=== PATIENT | male | born 1970 | race Caucasian/White ===

== ENCOUNTER 2017-06-19 20:52 | Inpatient (IN) | payer MEDICARE, MEDICAID ==
[2017-06-19 22:10] LABS: % EOSINOPHILS 5.2 % (0.0-5.0); % MONOCYTES 7.5 % (2.0-10.0); % NEUTROPHILS 72.3 % (40.0-80.0); EOSINOPHILE ABSOLUTE 0.4 Th/cmm (0.1-0.4); HEMATOCRIT 44.4 % (41.0-60); HEMOGLOBIN 14.7 gm/dL (12-16); LYMPHOCYTE ABSOLUTE 1.3 Th/cmm (1.5-3.0); MEAN CELL VOLUME 92.5 fl (80-99); MEAN CORPUSCULAR HEMOGLOBIN 30.7 pg (26.0-30.0); MEAN CORPUSCULAR HGB CONC 33.2 pg (28.0-36.0); MEAN PLATELET VOLUME 7.5 fl; MONOCYTE ABSOLUTE 0.6 Th/cmm (0.3-1.0); NEUTROPHILE ABSOLUTE 6.2 Th/cmm (1.8-8.0); PLATELET COUNT 387 Th/cmm (150-400); RED CELL DISTRIBUTION WIDTH 12.7 % (11.5-20.0); WHITE BLOOD COUNT 8.5 Th/cmm (4.8-10.8)
[2017-06-19 22:17] LABS: URINE MICROSCOPIC INDICATED? YES; URINE SOURCE CLEAN C
[2017-06-19 22:19] LABS: URINE BILIRUBIN NEGATIVE (NEGATIVE); URINE BLOOD NEGATIVE (NEGATIVE); URINE GLUCOSE (UA) NEGATIVE (NEGATIVE); URINE KETONE NEGATIVE (NEGATIVE); URINE LEUKOCYTE ESTERASE NEGATIVE (NEGATIVE); URINE NITRATE NEGATIVE (NEGATIVE); URINE PROTEIN 30 mg/dL (NEGATIVE)
[2017-06-19 22:24] LABS: ALB/GLOB RATIO 1.3 (1.0-1.8); ALBUMIN 4.1 gm/dL (4.2-5.5); ALKALINE PHOSPHATASE 95 U/L (34-104); ANION GAP 9.8 (7.0-16.0); BILIRUBIN,TOTAL 0.4 mg/dL (0.3-1.0); BUN - UREA NITROGEN 12 mg/dL (7-25); CALCIUM SERUM 9.7 mg/dL (8.6-10.3); CARBON DIOXIDE 27.8 mEq/L (21.0-31.0); CHLORIDE 99 mEq/L (98-107); CREATININE - SERUM 0.7 mg/dL (0.7-1.3); GFR AFRICAN-AMERICAN > 60.0 ml/min (>90); GFR NON AFRICAN-AMERICAN > 60.0 ml/min; GLUCOSE 115 mg/dL (70-105); PHENYTOIN 5.5 ug/ml (10.0-20.0); POTASSIUM SERUM 3.6 mEq/L (3.5-5.1); SGOT 45 U/L (13-39); SGPT/ALT 67 U/L (7-52); SODIUM SERUM 133 mEq/L (136-145); TOTAL PROTEIN,SERUM 7.3 gm/dL (6.0-8.3)
[2017-06-19 22:41] LABS: URINE CLARITY HAZY (CLEAR); URINE COLOR YELLOW
[2017-06-19 22:43] LABS: URINE BACTERIA FEW /hpf (NONE SEEN); URINE EPITHELIAL CELLS OCCASIONAL /lpf (FEW); URINE RBC 0-2 /hpf (0-5)
--- NOTE | 2017-06-19 23:36 | ED Physician Chart ---
ED Chief Complaint/HPI - Patient Information Date Seen:: 06/19/17 Time Seen:: 23:34 Chief Complaint:: Increased agitation and seizure Allergies:: Allergies Allergy/AdvReac Type Severity Reaction Status Date / Time No Known Allergies Allergy Verified 06/19/17 21:14 Vitals:: Vital Signs - 8 hr 06/19/17 21:14 Temp 97.6 F HR 103 RR 18 BP 149/90 O2 Sat % 98 Family Medical History - Family Member Mother History Unknown: Yes ED Labs/Radiology/EKG Results - Lab Results Results: Laboratory Tests 06/19/17 06/19/17 06/19/17 21:50 22:02 22:02 WBC 8.5 RBC 4.80 Hgb 14.7 Hct 44.4 MCV 92.5 MCH 30.7 H MCHC Differential 33.2 RDW 12.7 Plt Count 387 MPV 7.5 Neutrophils % 72.3 Lymphocytes % 15.0 L Monocytes % 7.5 Eosinophils % 5.2 H Basophils % 0.0 Sodium 133 L Potassium 3.6 Chloride 99 Carbon Dioxide 27.8 Anion Gap 9.8 BUN 12 Creatinine 0.7 Est GFR ( Amer) > 60.0 Est GFR (Non-Af Amer) > 60.0 BUN/Creatinine Ratio 17.1 Glucose 115 H Calcium 9.7 Total Bilirubin 0.4 AST 45 H ALT 67 H Alkaline Phosphatase 95 Total Protein 7.3 Albumin 4.1 L Globulin 3.2 Albumin/Globulin Ratio 1.3 TSH Urine Source CLEAN C Urine Color YELLOW Urine Clarity HAZY Urine pH 6.0 Ur Specific [place] 1.025 Urine Protein 30 H Urine Glucose (UA) NEGATIVE Urine Ketones NEGATIVE Urine Blood NEGATIVE Urine Nitrate NEGATIVE Urine Bilirubin NEGATIVE Urine Urobilinogen 1.0 Ur Leukocyte Esterase NEGATIVE Urine RBC 0-2 H Urine WBC 2-5 Ur Epithelial Cells OCCASIONAL Urine Bacteria FEW Urine Mucus MODERATE Phenytoin Carbamazepine 06/19/17 06/19/17 22:02 22:02 WBC RBC Hgb Hct MCV MCH MCHC Differential RDW Plt Count MPV Neutrophils % Lymphocytes % Monocytes % Eosinophils % Basophils % Sodium Potassium Chloride Carbon Dioxide Anion Gap BUN Creatinine Est GFR ( Amer) Est GFR (Non-Af Amer) BUN/Creatinine Ratio Glucose Calcium Total Bilirubin AST ALT Alkaline Phosphatase Total Protein Albumin Globulin Albumin/Globulin Ratio TSH 2.18 Urine Source Urine Color Urine Clarity Urine pH Ur Specific [place] Urine Protein Urine Glucose (UA) Urine Ketones Urine Blood Urine Nitrate Urine Bilirubin Urine Urobilinogen Ur Leukocyte Esterase Urine RBC Urine WBC Ur Epithelial Cells Urine Bacteria Urine Mucus Phenytoin 5.5 L Carbamazepine 4.2 ED Septic Shock - <6hrs of presentation: Vital Signs: Vital Signs - 8 hr 06/19/17 21:14 Temp 97.6 F HR 103 RR 18 BP 149/90 O2 Sat % 98
[2017-06-19] MEDS ORDERED: Sodium Chloride 0.9% 1,000 ML IV ONE (23:39)
[2017-06-19] MEDS ORDERED: Phenytoin 1,000 MG in Sodium Chloride 0.9% 100 ML IV ONE (23:40)
[2017-06-20] MEDS ORDERED: Phenytoin 50 mg/mL 5 mL Vial IV ONE (02:12)
[2017-06-20 05:24] VITALS: BP 107/72
[2017-06-20] MEDS: Sodium Chloride 0.9% 1,000 ML IV SCH ×2 (05:55→18:21)
[2017-06-20] MEDS ORDERED: Pneumococcal Vaccine 0.5 mL Vial IM ONE (06:25)
[2017-06-20 07:04] LABS: ANION GAP 10.3 (7.0-16.0); BUN - UREA NITROGEN 8 mg/dL (7-25); CALCIUM SERUM 9.4 mg/dL (8.6-10.3); CARBON DIOXIDE 24.7 mEq/L (21.0-31.0); CHLORIDE 104 mEq/L (98-107); CREATININE - SERUM 0.6 mg/dL (0.7-1.3); GFR AFRICAN-AMERICAN > 60.0 ml/min (>90); GFR NON AFRICAN-AMERICAN > 60.0 ml/min; GLUCOSE 106 mg/dL (70-105); SODIUM SERUM 135 mEq/L (136-145)
[2017-06-20 07:46] LABS: BASOPHILE ABSOLUTE 0.5 Th/cumm (0-0.2); EOSINOPHILE ABSOLUTE 0.8 Th/cmm (0.1-0.4); HEMATOCRIT 43.1 % (41.0-60); HEMOGLOBIN 14.3 gm/dL (12-16); LYMPHOCYTE ABSOLUTE 2.3 Th/cmm (1.5-3.0); MEAN CELL VOLUME 91.8 fl (80-99); MEAN CORPUSCULAR HEMOGLOBIN 30.5 pg (26.0-30.0); MEAN CORPUSCULAR HGB CONC 33.2 pg (28.0-36.0); MEAN PLATELET VOLUME 7.8 fl; NEUTROPHILE ABSOLUTE 3.2 Th/cmm (1.8-8.0); PLATELET COUNT 339 Th/cmm (150-400); RED BLOOD COUNT 4.69 Mil/cmm (4.30-5.70); RED CELL DISTRIBUTION WIDTH 12.7 % (11.5-20.0); WHITE BLOOD COUNT 7.8 Th/cmm (4.8-10.8)
[2017-06-20 07:47] LABS: % BASOPHILS 6.1 % (0.0-2.0); % EOSINOPHILS 10.3 % (0.0-5.0); % LYMPHOCYTES 29.3 % (20.0-50.0); % MONOCYTES 13.2 % (2.0-10.0); % NEUTROPHILS 40.8 % (40.0-80.0)
[2017-06-20] MEDS ORDERED: Lacosamide 10 mg/mL 10mL UDC PO SCH (09:00)
--- NOTE | 2017-06-20 09:00 | Diagnostic Imaging Report ---
CHEST X-RAY: AP view INDICATION: Shortness of breath COMPARISON: None FINDINGS: A stimulator device is seen with reservoir along the left upper chest region and wires extending to the cervical spine region There is no focal consolidation or pleural effusions The heart is normal in size. Degenerative changes of the spine are noted. IMPRESSION: No focal consolidation identified Stimulator device noted. Please correlate clinically.
--- NOTE | 2017-06-20 09:25 | Diagnostic Imaging Report ---
Head CT without intravenous contrast Indication: Seizure Comparison: None Technique: Axial images were obtained from the vertex to the skull base without IV contrast. Coronal reconstructions were made. Total DLP: 756, [id number] FINDINGS: There is evidence of previous left frontal, temporal, and parietal craniotomies with associated postsurgical changes. Areas of encephalomalacia of the left parietal lobe are noted extending to the posterior left temporal lobe. There is mild ex vacuo dilatation of left lateral ventricle. No evidence of an acute hemorrhage. The basal cisterns are patent. No mass effect or midline shift. No focal soft tissue swelling. Air-fluid levels of the bilateral maxillary sinuses are noted. IMPRESSION: Postsurgical changes with areas of encephalomalacia involving the left parietal and temporal lobe region. Please correlate with patient's clinical and surgical history. No evidence of an acute hemorrhage. Bilateral maxillary sinusitis.
[2017-06-20] MEDS ORDERED: Haloperidol Lactate 5 mg/mL 1mL Vial IM PRN (11:12)
[2017-06-20] MEDS ORDERED: DIAZEPAM 10 MG RC PRN (11:12)
[2017-06-20] MEDS ORDERED: LORAZEPAM 2 MG PO SCH (14:00)
--- NOTE | 2017-06-20 16:12 | History & Physical ---
ADMIT DATE: 06/20/2017 CHIEF COMPLAINT: Agitation. HISTORY OF PRESENT ILLNESS: This is a 46-year-old male, who was admitted from a custodial facility to the Emergency Room due to increase in agitation and en route to the Emergency Room, the patient had witnessed seizure. REVIEW OF SYSTEMS: GENERAL: This is a 46-year-old male that appears as stated. No chills. No fever. HEAD: No headache. No dizziness. EYES: No eye pain, no blurring of vision. NECK: No neck pain, no nuchal rigidity. CHEST: No chest pain. No palpitation. PULMONARY: No shortness of breath, no coughing. GASTROINTESTINAL: No diarrhea, no constipation, no abdominal pain. MUSCULOSKELETAL: No joint pain. No muscle pain. SOCIAL HISTORY: The patient lives in a custodial facility prior to hospitalization. FAMILY HISTORY: Unremarkable. PAST SURGICAL HISTORY: Unremarkable. PAST MEDICAL HISTORY: Includes seizure disorder, osteoarthritis. PSYCHIATRIC HISTORY: Mental retardation. PHYSICAL EXAMINATION: VITAL SIGNS: Temperature 97.8, heart rate 92, blood pressure 107/72, respirations 16, 96% on 2 liters via nasal cannula. HEENT: Head is atraumatic, normocephalic. Eyes: Bilateral conjunctivae are clear. Nose: Bilateral pupils are equally round and reactive. NECK: Supple. No JVD. CARDIOVASCULAR: S1 and S2, without murmur. PULMONARY: Clear to auscultation. GASTROINTESTINAL: Soft and nontender without guarding. Positive bowel sounds. MUSCULOSKELETAL: No clubbing. No cyanosis noted. ASSESSMENT: 1. Psychosis. 2. Mental retardation. 3. Seizure disorder. 4. Osteoarthritis. PLAN: We will keep the patient admitted to telemetry unit. We will put the patient on seizure precaution. We are also going to consult psychiatrist and neurologist to monitor the patient's condition. Treatment plans were discussed with the patient's nurse. Treatment plans were discussed with Dr. Patel. We will do medication reconciliation accordingly. JOB# [id number]
[2017-06-20] MEDS ORDERED: Non-Formulary Item 1 EA (Carbamazepine [Tegretol Xr] 400 MG) PO SCH (17:00)
[2017-06-20] MEDS ORDERED: LACOSAMIDE 150 MG PO SCH (17:00)
[2017-06-20] MEDS ORDERED: Haloperidol Lactate 5 mg/mL 1mL Vial IM SCH (22:00)
--- NOTE | 2017-06-21 08:57 | General Progress Note ---
Subjective - Review of Systems Events since last encounter: patient admitted for increase agitation s/p seizures Objective - Results Result Diagrams: 06/20/17 05:47 06/20/17 05:47 Recent Labs: Laboratory Last Values WBC 7.8 Th/cmm (4.8-10.8) 06/20/17 05:47 RBC 4.69 Mil/cmm (4.30-5.70) 06/20/17 05:47 Hgb 14.3 gm/dL (12-16) 06/20/17 05:47 Hct 43.1 % (41.0-60) 06/20/17 05:47 MCV 91.8 fl (80-99) 06/20/17 05:47 MCH 30.5 pg (26.0-30.0) H 06/20/17 05:47 MCHC Differential 33.2 pg (28.0-36.0) 06/20/17 05:47 RDW 12.7 % (11.5-20.0) 06/20/17 05:47 Plt Count 339 Th/cmm (150-400) 06/20/17 05:47 MPV 7.8 fl 06/20/17 05:47 Neutrophils % 40.8 % (40.0-80.0) 06/20/17 05:47 Lymphocytes % 29.3 % (20.0-50.0) 06/20/17 05:47 Monocytes % 13.2 % (2.0-10.0) H 06/20/17 05:47 Eosinophils % 10.3 % (0.0-5.0) H 06/20/17 05:47 Basophils % 6.1 % (0.0-2.0) H 06/20/17 05:47 Sodium 135 mEq/L (136-145) L 06/20/17 05:47 Potassium 4.0 mEq/L (3.5-5.1) 06/20/17 05:47 Chloride 104 mEq/L (98-107) 06/20/17 05:47 Carbon Dioxide 24.7 mEq/L (21.0-31.0) 06/20/17 05:47 Anion Gap 10.3 (7.0-16.0) 06/20/17 05:47 BUN 8 mg/dL (7-25) 06/20/17 05:47 Creatinine 0.6 mg/dL (0.7-1.3) L 06/20/17 05:47 Est GFR ( Amer) > 60.0 ml/min (>90) 06/20/17 05:47 Est GFR (Non-Af Amer) > 60.0 ml/min 06/20/17 05:47 BUN/Creatinine Ratio 13.3 06/20/17 05:47 Glucose 106 mg/dL (70-105) H 06/20/17 05:47 Calcium 9.4 mg/dL (8.6-10.3) 06/20/17 05:47 Total Bilirubin 0.4 mg/dL (0.3-1.0) 06/19/17 22:02 AST 45 U/L (13-39) H 06/19/17 22:02 ALT 67 U/L (7-52) H 06/19/17 22:02 Alkaline Phosphatase 95 U/L (34-104) 06/19/17 22:02 Total Protein 7.3 gm/dL (6.0-8.3) 06/19/17 22:02 Albumin 4.1 gm/dL (4.2-5.5) L 06/19/17 22:02 Globulin 3.2 gm/dL 06/19/17 22:02 Albumin/Globulin Ratio 1.3 (1.0-1.8) 06/19/17 22:02 TSH 2.18 uIU/ml (0.34-5.60) 06/19/17 22:02 Urine Source CLEAN C 06/19/17 21:50 Urine Color YELLOW 06/19/17 21:50 Urine Clarity HAZY (CLEAR) 06/19/17 21:50 Urine pH 6.0 (4.6 - 8.0) 06/19/17 21:50 Ur Specific [place] 1.025 (1.005-1.030) 06/19/17 21:50 Urine Protein 30 mg/dL (NEGATIVE) H 06/19/17 21:50 Urine Glucose (UA) NEGATIVE mg/dL (NEGATIVE) 06/19/17 21:50 Urine Ketones NEGATIVE mg/dL (NEGATIVE) 06/19/17 21:50 Urine Blood NEGATIVE (NEGATIVE) 06/19/17 21:50 Urine Nitrate NEGATIVE (NEGATIVE) 06/19/17 21:50 Urine Bilirubin NEGATIVE (NEGATIVE) 06/19/17 21:50 Urine Urobilinogen 1.0 E.U./dL (0.2 - 1.0) 06/19/17 21:50 Ur Leukocyte Esterase NEGATIVE (NEGATIVE) 06/19/17 21:50 Urine RBC 0-2 /hpf (0-5) H 06/19/17 21:50 Urine WBC 2-5 /hpf (0-5) 06/19/17 21:50 Ur Epithelial Cells OCCASIONAL /lpf (FEW) 06/19/17 21:50 Urine Bacteria FEW /hpf (NONE SEEN) 06/19/17 21:50 Urine Mucus MODERATE /lpf (FEW) 06/19/17 21:50 Phenytoin 14.4 ug/ml (10.0-20.0) 06/20/17 05:47 Carbamazepine 4.2 ug/ml (4.0-12.0) 06/19/17 22:02 - Physical Exam Vitals and I&O: Vital Signs Temp 97.9 F 06/20/17 20:00 Pulse 64 06/21/17 07:16 Resp 16 06/21/17 08:02 BP 112/75 06/20/17 20:00 Pulse Ox 99 06/21/17 07:16 Intake & Output 06/20/17 06/21/17 06/21/17 18:59 06:59 18:59 Intake Total 1082.5 240 Balance 1082.5 240 Weight (lbs) 74.162 kg 37.467 kg Intake: Intake, IV Amount 932.5 Sodium Chloride 0.9% 1, 932.5 000 ml @ 75 mls/hr IV . [id number] [facility] Rx#:[id number] Oral 150 240 Other: # Voids 1 3 # Bowel Movements 0 0 Active Medications: Current Medications Acetaminophen (Tylenol) 650 mg PO Q4HR PRN PRN Reason: MILD PAIN/TEMP>101.0 Stop: 08/19/17 11:11 Carbamazepine (Tegretol) 400 mg PO BID [facility] PRN Reason: Protocol Stop: 08/19/17 08:59 Last Admin: 06/20/17 16:34 Dose: 400 mg Haloperidol (Haldol) 5 mg PO Q8HR [facility] PRN Reason: Protocol Stop: 08/19/17 12:59 Last Admin: 06/21/17 07:37 Dose: Not Given Sodium Chloride (Nacl 0.9%) 1,000 mls @ 75 mls/hr IV .[id number] [facility] Stop: 08/19/17 05:10 Last Admin: 06/20/17 18:21 Dose: 75 mls/hr Lacosamide (Vimpat) 150 mg PO BID [facility] Stop: 08/19/17 08:59 Last Admin: 06/20/17 16:50 Dose: 150 mg Levetiracetam (Keppra) 1,500 mg PO Q12HR [facility] Stop: 08/19/17 08:59 Last Admin: 06/20/17 20:38 Dose: 1,500 mg Lorazepam (Ativan) 2 mg PO TID PRN PRN Reason: ANXIETY Stop: 08/19/17 13:42 Last Admin: 06/20/17 18:56 Dose: 2 mg Mupirocin (Bactroban Oint) 1 appl NS BID [facility] Stop: 06/25/17 09:01 Last Admin: 06/20/17 16:36 Dose: 1 appl Phenytoin (Dilantin) 100 mg PO TID [facility] Stop: 08/19/17 08:59 Last Admin: 06/20/17 20:31 Dose: 100 mg Temazepam (Restoril) 15 mg PO HS PRN; Protocol PRN Reason: Insomnia Stop: 08/19/17 11:11 Last Admin: 06/20/17 20:30 Dose: 15 mg Tramadol HCl (Ultram) 50 mg PO Q8HR [facility] Stop: 08/19/17 12:59 Last Admin: 06/21/17 07:38 Dose: Not Given
[2017-06-21] MEDS: Sodium Chloride 0.9% 1,000 ML IV SCH (16:20)
--- NOTE | 2017-06-21 20:58 | Consultation ---
DATE OF CONSULTATION: 06/21/2017 REFERRING PHYSICIAN: Dr. Patel REASON FOR CONSULTATION: Agitation. CHIEF COMPLAINT: Drowsy and limited historian. HISTORY OF PRESENT ILLNESS: A 46-year-old male who was initially brought here by shelter facility through the ER for increased agitation, found to experience seizure disorders. Nursing staff reported overnight the patient had continued to be experiencing seizures, most recent one today and required emergent medications yesterday secondary to the aggressive behavior. Today on [id number] evaluation, the patient had received Ativan less than about half an hour ago, observed to be easily sedated, very difficult to wake, drowsy upon awakening, minimally interactive, minimally engaging. PAST PSYCHIATRIC HISTORY: History of unspecified psychosis. PAST MEDICAL HISTORY: Includes epilepsy, osteoarthritis and also history of developmental delay, intellectual incapacity. ALLERGIES TO MEDICATIONS: NKDA. SOCIAL HISTORY: Currently lives in a shelter. Denies illicit drug use. FAMILY HISTORY: Unremarkable. LABORATORY DATA: Reviewed and unremarkable. MENTAL STATUS EXAMINATION: Limited historian, drowsy from the Ativan he recently got for his agitation and recent witnessed seizure, unable to assess thought process, thought content, limited historian overall. CURRENT MEDICATIONS: He is currently on Tegretol 400 mg p.o. b.i.d., Haldol 5 mg every 8 hours as needed, Keppra 1500 mg p.o. b.i.d., lorazepam 2 mg as needed for breakthrough seizures also. He is also on phenytoin 100 mg p.o. t.i.d. ASSESSMENT AND PLAN: The patient is a 46-year-old male with a previous history of intellectual disability and history of unspecified psychosis who has breakthrough seizures at this point, most likely the culprit of the patient's increased agitation and aggressive behavior, he is postictal at this point. Recommend at this point to continue to target and treating the underlying seizure disorder. In the meantime regards to his aggressive behaviors, may consider a low dosage of Seroquel 25 mg p.o. b.i.d. to target the patient's agitation and aggressiveness that is coming from the postictal psychosis. We will continue to follow alongside. 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 SECONDARY DIAGNOSIS: None. MEDICAL DIAGNOSIS: Epilepsy and osteoarthritis. PLAN: 1. No criteria met for 5150 at this point. 2. Continue treating the underlying epilepsy. 3. Recommend Seroquel 25 mg p.o. b.i.d. to target the patient's postictal psychosis. Thank you for the consultation. We will continue following alongside. JOB# [id number]
[2017-06-22 06:27] LABS: % BASOPHILS 0.1 % (0.0-2.0); % EOSINOPHILS 9.1 % (0.0-5.0); % LYMPHOCYTES 27.3 % (20.0-50.0); % MONOCYTES 8.7 % (2.0-10.0); % NEUTROPHILS 54.8 % (40.0-80.0); EOSINOPHILE ABSOLUTE 0.6 Th/cmm (0.1-0.4); HEMATOCRIT 43.1 % (41.0-60); HEMOGLOBIN 14.7 gm/dL (12-16); LYMPHOCYTE ABSOLUTE 1.9 Th/cmm (1.5-3.0); MEAN CELL VOLUME 91.2 fl (80-99); MEAN CORPUSCULAR HEMOGLOBIN 31.1 pg (26.0-30.0); MEAN CORPUSCULAR HGB CONC 34.1 pg (28.0-36.0); MEAN PLATELET VOLUME 7.7 fl; MONOCYTE ABSOLUTE 0.6 Th/cmm (0.3-1.0); NEUTROPHILE ABSOLUTE 3.7 Th/cmm (1.8-8.0); PLATELET COUNT 357 Th/cmm (150-400); RED BLOOD COUNT 4.73 Mil/cmm (4.30-5.70); RED CELL DISTRIBUTION WIDTH 12.9 % (11.5-20.0); WHITE BLOOD COUNT 6.8 Th/cmm (4.8-10.8)
[2017-06-22 06:50] LABS: ANION GAP 11.1 (7.0-16.0); BUN - UREA NITROGEN 7 mg/dL (7-25); CALCIUM SERUM 9.5 mg/dL (8.6-10.3); CARBON DIOXIDE 27.2 mEq/L (21.0-31.0); CHLORIDE 102 mEq/L (98-107); CREATININE - SERUM 0.6 mg/dL (0.7-1.3); GFR AFRICAN-AMERICAN > 60.0 ml/min (>90); GFR NON AFRICAN-AMERICAN > 60.0 ml/min; GLUCOSE 86 mg/dL (70-105); POTASSIUM SERUM 3.3 mEq/L (3.5-5.1); SODIUM SERUM 137 mEq/L (136-145)
[2017-06-22] MEDS ORDERED: Potassium Chloride Elixir 20 mEq /15 mL UDC PO ONE (08:33)
--- NOTE | 2017-06-22 12:23 | Internal Medicine Prog Note ---
Internal Medicine Subjective - Subjective Service Date: 06/22/17 Patient seen and examined:: with staff Patient is:: awake, verbal Per staff patient has:: tolerating meds Internal Medicine Objective - Results Result Diagrams: 06/22/17 05:55 06/22/17 05:55 Recent Labs: Laboratory Last Values WBC 6.8 Th/cmm (4.8-10.8) 06/22/17 05:55 RBC 4.73 Mil/cmm (4.30-5.70) 06/22/17 05:55 Hgb 14.7 gm/dL (12-16) 06/22/17 05:55 Hct 43.1 % (41.0-60) 06/22/17 05:55 MCV 91.2 fl (80-99) 06/22/17 05:55 MCH 31.1 pg (26.0-30.0) H 06/22/17 05:55 MCHC Differential 34.1 pg (28.0-36.0) 06/22/17 05:55 RDW 12.9 % (11.5-20.0) 06/22/17 05:55 Plt Count 357 Th/cmm (150-400) 06/22/17 05:55 MPV 7.7 fl 06/22/17 05:55 Neutrophils % 54.8 % (40.0-80.0) 06/22/17 05:55 Lymphocytes % 27.3 % (20.0-50.0) 06/22/17 05:55 Monocytes % 8.7 % (2.0-10.0) 06/22/17 05:55 Eosinophils % 9.1 % (0.0-5.0) H 06/22/17 05:55 Basophils % 0.1 % (0.0-2.0) 06/22/17 05:55 Sodium 137 mEq/L (136-145) 06/22/17 05:55 Potassium 3.3 mEq/L (3.5-5.1) L 06/22/17 05:55 Chloride 102 mEq/L (98-107) 06/22/17 05:55 Carbon Dioxide 27.2 mEq/L (21.0-31.0) 06/22/17 05:55 Anion Gap 11.1 (7.0-16.0) 06/22/17 05:55 BUN 7 mg/dL (7-25) 06/22/17 05:55 Creatinine 0.6 mg/dL (0.7-1.3) L 06/22/17 05:55 Est GFR ( Amer) > 60.0 ml/min (>90) 06/22/17 05:55 Est GFR (Non-Af Amer) > 60.0 ml/min 06/22/17 05:55 BUN/Creatinine Ratio 11.7 06/22/17 05:55 Glucose 86 mg/dL (70-105) 06/22/17 05:55 Calcium 9.5 mg/dL (8.6-10.3) 06/22/17 05:55 Total Bilirubin 0.4 mg/dL (0.3-1.0) 06/19/17 22:02 AST 45 U/L (13-39) H 06/19/17 22:02 ALT 67 U/L (7-52) H 06/19/17 22:02 Alkaline Phosphatase 95 U/L (34-104) 06/19/17 22:02 Total Protein 7.3 gm/dL (6.0-8.3) 06/19/17 22:02 Albumin 4.1 gm/dL (4.2-5.5) L 06/19/17 22:02 Globulin 3.2 gm/dL 06/19/17 22:02 Albumin/Globulin Ratio 1.3 (1.0-1.8) 06/19/17 22:02 TSH 2.18 uIU/ml (0.34-5.60) 06/19/17 22:02 Urine Source CLEAN C 06/19/17 21:50 Urine Color YELLOW 06/19/17 21:50 Urine Clarity HAZY (CLEAR) 06/19/17 21:50 Urine pH 6.0 (4.6 - 8.0) 06/19/17 21:50 Ur Specific [place] 1.025 (1.005-1.030) 06/19/17 21:50 Urine Protein 30 mg/dL (NEGATIVE) H 06/19/17 21:50 Urine Glucose (UA) NEGATIVE mg/dL (NEGATIVE) 06/19/17 21:50 Urine Ketones NEGATIVE mg/dL (NEGATIVE) 06/19/17 21:50 Urine Blood NEGATIVE (NEGATIVE) 06/19/17 21:50 Urine Nitrate NEGATIVE (NEGATIVE) 06/19/17 21:50 Urine Bilirubin NEGATIVE (NEGATIVE) 06/19/17 21:50 Urine Urobilinogen 1.0 E.U./dL (0.2 - 1.0) 06/19/17 21:50 Ur Leukocyte Esterase NEGATIVE (NEGATIVE) 06/19/17 21:50 Urine RBC 0-2 /hpf (0-5) H 06/19/17 21:50 Urine WBC 2-5 /hpf (0-5) 06/19/17 21:50 Ur Epithelial Cells OCCASIONAL /lpf (FEW) 06/19/17 21:50 Urine Bacteria FEW /hpf (NONE SEEN) 06/19/17 21:50 Urine Mucus MODERATE /lpf (FEW) 06/19/17 21:50 Phenytoin 14.4 ug/ml (10.0-20.0) 06/20/17 05:47 Carbamazepine 4.2 ug/ml (4.0-12.0) 06/19/17 22:02 - Physical Exam Vitals and I&O: Vital Signs Temp 98.9 F 06/22/17 08:00 Pulse 83 06/22/17 08:00 Resp 18 06/22/17 08:00 BP 106/73 06/22/17 08:00 Pulse Ox 95 06/22/17 08:00 Intake & Output 06/21/17 06/22/17 06/22/17 18:59 06:59 18:59 Intake Total 1200 Balance 1200 Weight (lbs) 82 lb Intake: Intake, IV Amount 1000 Sodium Chloride 0.9% 1, 1000 000 ml @ 75 mls/hr IV . [id number] [facility] Rx#:[id number] Oral 200 Other: # Voids 3 # Bowel Movements 0 Active Medications: Current Medications Acetaminophen (Tylenol) 650 mg PO Q4HR PRN PRN Reason: MILD PAIN/TEMP>101.0 Stop: 08/19/17 11:11 Carbamazepine (Tegretol) 400 mg PO BID [facility] PRN Reason: Protocol Stop: 08/19/17 08:59 Last Admin: 06/22/17 10:15 Dose: 400 mg Haloperidol (Haldol) 5 mg PO Q8HR [facility] PRN Reason: Protocol Stop: 08/19/17 12:59 Last Admin: 06/22/17 06:41 Dose: Not Given Lacosamide (Vimpat) 150 mg PO BID [facility] Stop: 08/19/17 08:59 Last Admin: 06/22/17 10:16 Dose: 150 mg Levetiracetam (Keppra) 1,500 mg PO Q12HR [facility] Stop: 08/19/17 08:59 Last Admin: 06/22/17 10:15 Dose: 1,500 mg Lorazepam (Ativan) 2 mg PO TID PRN PRN Reason: ANXIETY Stop: 08/19/17 13:42 Last Admin: 06/20/17 18:56 Dose: 2 mg Lorazepam (Ativan) 1 mg IVP Q4HR PRN; Protocol PRN Reason: seizures or agitation Stop: 08/20/17 08:56 Last Admin: 06/21/17 20:48 Dose: 1 mg Mupirocin (Bactroban Oint) 1 appl NS BID [facility] Stop: 06/25/17 09:01 Last Admin: 06/22/17 10:37 Dose: Not Given Phenytoin (Dilantin) 100 mg PO TID [facility] Stop: 08/19/17 08:59 Last Admin: 06/22/17 10:37 Dose: 100 mg Quetiapine Fumarate (Seroquel) 25 mg PO BID [facility] PRN Reason: Protocol Stop: 08/21/17 08:59 Temazepam (Restoril) 15 mg PO HS PRN; Protocol PRN Reason: Insomnia Stop: 08/19/17 11:11 Last Admin: 06/21/17 23:00 Dose: 15 mg Tramadol HCl (Ultram) 50 mg PO Q8HR [facility] Stop: 08/19/17 12:59 Last Admin: 06/22/17 06:41 Dose: Not Given General: weak, alert HEENT: NC/AT, PERRLA Neck: Supple Lungs: CTAB Cardiovascular: RRR, Normal S1, Normal S2, without murmur Abdomen: soft, non-tender, non-distended, positive bowel sound Neurological: no change Internal Medicine Assmt/Plan - Assessment Assessment: psychosis MR seizure disorder oa - Plan Plan: sitter for safety seizure precautions continue current orders
--- NOTE | 2017-06-22 18:22 | Consultation ---
DATE OF CONSULTATION: 06/21/2017 NEUROLOGY CONSULTATION HISTORY OF PRESENT ILLNESS: The patient is a 46-year-old. The patient was just in [facility], sent to the senior care, then had seizure, transferred here. The patient with history of known seizures. The patient had intracranial surgery, craniotomy. He has encephalomalacia, mainly on the left side. The patient has limited speech. Some drift on the right side. The patient's seizures on and off. Multiple medications. MEDICATIONS: The patient here on carbamazepine 400 mg b.i.d., lacosamide 150 mg b.i.d., Keppra 1500 mg q. 12 hours, lorazepam p.r.n. Seroquel 25 b.i.d., Haldol 5 mg q. 8 hours, temazepam 15 mg at bedtime, tramadol 50 mg. REVIEW OF SYSTEMS: The patient just got Ativan. He was agitated. Moving all extremities. ____, sleepy, drowsy. Eyes closed. We will open his eyes, kind of responds to name, but does not do much more. PHYSICAL EXAMINATION: VITAL SIGNS: Temperature 97.3, blood pressure 110/70, pulse is around 80. NECK: Supple, no bruits. HEART: Sounds S1, S2. LUNGS: Clear. NEUROLOGIC: The patient lying in bed, drowsy. The patient has limited interaction. He will open eyes to name, but not doing much for me at the moment. The patient is very drowsy, probably post from Ativan injection. INVESTIGATIONS: CT scan shows previous craniotomy and encephalomalacia. LABORATORY DATA: WBC is 7.8, hemoglobin 14.3. Sodium 135, calcium 9.5. Dilantin level 14.4. The patient's Tegretol level 4.2. IMPRESSION: 1. Seizures. 2. Previous intracranial injury with encephalomalacia. 3. Cognitive impairment. 4. MR. 5. Osteoarthritis. PLAN: Continue present treatment. Adjust dosage. JOB# [id number]
--- NOTE | 2017-06-23 00:23 | Progress Notes ---
DATE: 06/22/[address] Cavazos. Case was discussed with staff of the patient, reviewed records. This is a 46-year-old male who was evaluated because of increasing agitation. He came to the Emergency Room because of agitation, found to have seizure disorder. Overnight, the patient has continued to experience seizure and apparently became psychotic. He was started on Seroquel 50 mg twice a day, Ativan continues. The patient today is more clear. He is not acting in a psychotic manner. He is sleeping well, eating well. He is compliant with the medication with no side effect. The patient needs follow up with the psychiatrist upon discharge. Thank you very much for allowing me to participate in the care of this most interesting gentleman. JOB# [id number]
[2017-06-23 12:24] LABS: % BASOPHILS 0.1 % (0.0-2.0); % EOSINOPHILS 9.1 % (0.0-5.0); % LYMPHOCYTES 33.6 % (20.0-50.0); % MONOCYTES 8.6 % (2.0-10.0); % NEUTROPHILS 48.6 % (40.0-80.0); EOSINOPHILE ABSOLUTE 0.6 Th/cmm (0.1-0.4); HEMATOCRIT 41.7 % (41.0-60); LYMPHOCYTE ABSOLUTE 2.2 Th/cmm (1.5-3.0); MEAN CELL VOLUME 92.4 fl (80-99); MEAN CORPUSCULAR HEMOGLOBIN 31.1 pg (26.0-30.0); MEAN CORPUSCULAR HGB CONC 33.6 pg (28.0-36.0); MEAN PLATELET VOLUME 7.2 fl; MONOCYTE ABSOLUTE 0.6 Th/cmm (0.3-1.0); PLATELET COUNT 358 Th/cmm (150-400); RED BLOOD COUNT 4.51 Mil/cmm (4.30-5.70); RED CELL DISTRIBUTION WIDTH 12.9 % (11.5-20.0); WHITE BLOOD COUNT 6.4 Th/cmm (4.8-10.8)
--- NOTE | 2017-06-23 12:26 | Infectious Disease Prog Note ---
Infectious Disease Subjective - Review of Systems Service Date: 06/23/17 Infectious Disease Objective - Results Result Diagrams: 06/22/17 05:55 06/22/17 05:55 Recent Labs: Laboratory Last Values WBC 6.8 Th/cmm (4.8-10.8) 06/22/17 05:55 RBC 4.73 Mil/cmm (4.30-5.70) 06/22/17 05:55 Hgb 14.7 gm/dL (12-16) 06/22/17 05:55 Hct 43.1 % (41.0-60) 06/22/17 05:55 MCV 91.2 fl (80-99) 06/22/17 05:55 MCH 31.1 pg (26.0-30.0) H 06/22/17 05:55 MCHC Differential 34.1 pg (28.0-36.0) 06/22/17 05:55 RDW 12.9 % (11.5-20.0) 06/22/17 05:55 Plt Count 357 Th/cmm (150-400) 06/22/17 05:55 MPV 7.7 fl 06/22/17 05:55 Neutrophils % 54.8 % (40.0-80.0) 06/22/17 05:55 Lymphocytes % 27.3 % (20.0-50.0) 06/22/17 05:55 Monocytes % 8.7 % (2.0-10.0) 06/22/17 05:55 Eosinophils % 9.1 % (0.0-5.0) H 06/22/17 05:55 Basophils % 0.1 % (0.0-2.0) 06/22/17 05:55 Sodium 137 mEq/L (136-145) 06/22/17 05:55 Potassium 3.3 mEq/L (3.5-5.1) L 06/22/17 05:55 Chloride 102 mEq/L (98-107) 06/22/17 05:55 Carbon Dioxide 27.2 mEq/L (21.0-31.0) 06/22/17 05:55 Anion Gap 11.1 (7.0-16.0) 06/22/17 05:55 BUN 7 mg/dL (7-25) 06/22/17 05:55 Creatinine 0.6 mg/dL (0.7-1.3) L 06/22/17 05:55 Est GFR ( Amer) > 60.0 ml/min (>90) 06/22/17 05:55 Est GFR (Non-Af Amer) > 60.0 ml/min 06/22/17 05:55 BUN/Creatinine Ratio 11.7 06/22/17 05:55 Glucose 86 mg/dL (70-105) 06/22/17 05:55 Calcium 9.5 mg/dL (8.6-10.3) 06/22/17 05:55 Total Bilirubin 0.4 mg/dL (0.3-1.0) 06/19/17 22:02 AST 45 U/L (13-39) H 06/19/17 22:02 ALT 67 U/L (7-52) H 06/19/17 22:02 Alkaline Phosphatase 95 U/L (34-104) 06/19/17 22:02 Total Protein 7.3 gm/dL (6.0-8.3) 06/19/17 22:02 Albumin 4.1 gm/dL (4.2-5.5) L 06/19/17 22:02 Globulin 3.2 gm/dL 06/19/17 22:02 Albumin/Globulin Ratio 1.3 (1.0-1.8) 06/19/17 22:02 TSH 2.18 uIU/ml (0.34-5.60) 06/19/17 22:02 Urine Source CLEAN C 06/19/17 21:50 Urine Color YELLOW 06/19/17 21:50 Urine Clarity HAZY (CLEAR) 06/19/17 21:50 Urine pH 6.0 (4.6 - 8.0) 06/19/17 21:50 Ur Specific [place] 1.025 (1.005-1.030) 06/19/17 21:50 Urine Protein 30 mg/dL (NEGATIVE) H 06/19/17 21:50 Urine Glucose (UA) NEGATIVE mg/dL (NEGATIVE) 06/19/17 21:50 Urine Ketones NEGATIVE mg/dL (NEGATIVE) 06/19/17 21:50 Urine Blood NEGATIVE (NEGATIVE) 06/19/17 21:50 Urine Nitrate NEGATIVE (NEGATIVE) 06/19/17 21:50 Urine Bilirubin NEGATIVE (NEGATIVE) 06/19/17 21:50 Urine Urobilinogen 1.0 E.U./dL (0.2 - 1.0) 06/19/17 21:50 Ur Leukocyte Esterase NEGATIVE (NEGATIVE) 06/19/17 21:50 Urine RBC 0-2 /hpf (0-5) H 06/19/17 21:50 Urine WBC 2-5 /hpf (0-5) 06/19/17 21:50 Ur Epithelial Cells OCCASIONAL /lpf (FEW) 06/19/17 21:50 Urine Bacteria FEW /hpf (NONE SEEN) 06/19/17 21:50 Urine Mucus MODERATE /lpf (FEW) 06/19/17 21:50 Phenytoin 14.4 ug/ml (10.0-20.0) 06/20/17 05:47 Carbamazepine 4.2 ug/ml (4.0-12.0) 06/19/17 22:02 Levetiracetam 19.1 ug/mL (10.0-40.0) 06/19/17 22:02 - Physical Exam Vitals and I&O: Vital Signs Temp 97.7 F 06/23/17 08:00 Pulse 71 06/23/17 08:00 Resp 18 06/23/17 08:00 BP 105/78 06/23/17 08:00 Pulse Ox 96 06/23/17 08:00 Intake & Output 06/22/17 06/23/17 06/23/17 18:59 06:59 18:59 Intake Total 500 50 Balance 500 50 Weight (lbs) 37.195 kg 37.195 kg Intake: Oral 500 50 Other: # Voids 4 3 # Bowel Movements 0 0 Active Medications: Current Medications Acetaminophen (Tylenol) 650 mg PO Q4HR PRN PRN Reason: MILD PAIN/TEMP>101.0 Stop: 08/19/17 11:11 Carbamazepine (Tegretol) 400 mg PO BID [facility] PRN Reason: Protocol Stop: 08/19/17 08:59 Last Admin: 06/23/17 08:55 Dose: 400 mg Haloperidol (Haldol) 5 mg PO Q8HR [facility] PRN Reason: Protocol Stop: 08/19/17 12:59 Last Admin: 06/23/17 05:54 Dose: 5 mg Lacosamide (Vimpat) 150 mg PO BID [facility] Stop: 08/19/17 08:59 Last Admin: 06/23/17 08:57 Dose: 150 mg Levetiracetam (Keppra) 1,500 mg PO Q12HR [facility] Stop: 08/19/17 08:59 Last Admin: 06/23/17 08:56 Dose: 1,500 mg Lorazepam (Ativan) 2 mg PO TID PRN PRN Reason: ANXIETY Stop: 08/19/17 13:42 Last Admin: 06/20/17 18:56 Dose: 2 mg Lorazepam (Ativan) 1 mg IVP Q4HR PRN; Protocol PRN Reason: seizures or agitation Stop: 08/20/17 08:56 Last Admin: 06/21/17 20:48 Dose: 1 mg Phenytoin (Dilantin) 100 mg PO TID [facility] Stop: 08/19/17 08:59 Last Admin: 06/23/17 08:56 Dose: 100 mg Quetiapine Fumarate (Seroquel) 25 mg PO BID [facility] PRN Reason: Protocol Stop: 08/21/17 16:59 Last Admin: 06/23/17 08:55 Dose: 25 mg Temazepam (Restoril) 15 mg PO HS PRN; Protocol PRN Reason: Insomnia Stop: 08/19/17 11:11 Last Admin: 06/21/17 23:00 Dose: 15 mg Tramadol HCl (Ultram) 50 mg PO Q8HR [facility] Stop: 08/19/17 12:59 Last Admin: 06/23/17 05:54 Dose: 50 mg General: no acute distress, well nourished HEENT: atraumatic, normocephalic, PERRLA, EOMI Neck: supple, no thyromegaly Cardiovascular: S1S2, regular Lungs: clear to auscultation bilaterally, clear to percussion Abdomen: soft, no tender, no distended Extremities: no cyanosis, no clubbing, no edema Neurological: other (unresponsive.) Skin: intact Infectious Disease Assmt/Plan - Assessment Assessment: psychosis MR seizure disorder oa hypokalemia - Plan Plan: Potassium supplementation done yesterday. DC planning if potassium is normal;.
--- NOTE | 2017-06-23 14:42 | Internal Medicine Prog Note ---
Internal Medicine Subjective - Subjective Service Date: 06/23/17 Patient is:: awake, verbal Per staff patient has:: tolerating meds Internal Medicine Objective - Results Result Diagrams: 06/23/17 12:14 06/22/17 05:55 Recent Labs: Laboratory Last Values WBC 6.4 Th/cmm (4.8-10.8) 06/23/17 12:14 RBC 4.51 Mil/cmm (4.30-5.70) 06/23/17 12:14 Hgb 14.0 gm/dL (12-16) 06/23/17 12:14 Hct 41.7 % (41.0-60) 06/23/17 12:14 MCV 92.4 fl (80-99) 06/23/17 12:14 MCH 31.1 pg (26.0-30.0) H 06/23/17 12:14 MCHC Differential 33.6 pg (28.0-36.0) 06/23/17 12:14 RDW 12.9 % (11.5-20.0) 06/23/17 12:14 Plt Count 358 Th/cmm (150-400) 06/23/17 12:14 MPV 7.2 fl 06/23/17 12:14 Neutrophils % 48.6 % (40.0-80.0) 06/23/17 12:14 Lymphocytes % 33.6 % (20.0-50.0) 06/23/17 12:14 Monocytes % 8.6 % (2.0-10.0) 06/23/17 12:14 Eosinophils % 9.1 % (0.0-5.0) H 06/23/17 12:14 Basophils % 0.1 % (0.0-2.0) 06/23/17 12:14 Sodium 137 mEq/L (136-145) 06/22/17 05:55 Potassium 3.3 mEq/L (3.5-5.1) L 06/22/17 05:55 Chloride 102 mEq/L (98-107) 06/22/17 05:55 Carbon Dioxide 27.2 mEq/L (21.0-31.0) 06/22/17 05:55 Anion Gap 11.1 (7.0-16.0) 06/22/17 05:55 BUN 7 mg/dL (7-25) 06/22/17 05:55 Creatinine 0.6 mg/dL (0.7-1.3) L 06/22/17 05:55 Est GFR ( Amer) > 60.0 ml/min (>90) 06/22/17 05:55 Est GFR (Non-Af Amer) > 60.0 ml/min 06/22/17 05:55 BUN/Creatinine Ratio 11.7 06/22/17 05:55 Glucose 86 mg/dL (70-105) 06/22/17 05:55 Calcium 9.5 mg/dL (8.6-10.3) 06/22/17 05:55 Total Bilirubin 0.4 mg/dL (0.3-1.0) 06/19/17 22:02 AST 45 U/L (13-39) H 06/19/17 22:02 ALT 67 U/L (7-52) H 06/19/17 22:02 Alkaline Phosphatase 95 U/L (34-104) 06/19/17 22:02 Total Protein 7.3 gm/dL (6.0-8.3) 06/19/17 22:02 Albumin 4.1 gm/dL (4.2-5.5) L 06/19/17 22:02 Globulin 3.2 gm/dL 06/19/17 22:02 Albumin/Globulin Ratio 1.3 (1.0-1.8) 06/19/17 22:02 TSH 2.18 uIU/ml (0.34-5.60) 06/19/17 22:02 Urine Source CLEAN C 06/19/17 21:50 Urine Color YELLOW 06/19/17 21:50 Urine Clarity HAZY (CLEAR) 06/19/17 21:50 Urine pH 6.0 (4.6 - 8.0) 06/19/17 21:50 Ur Specific [place] 1.025 (1.005-1.030) 06/19/17 21:50 Urine Protein 30 mg/dL (NEGATIVE) H 06/19/17 21:50 Urine Glucose (UA) NEGATIVE mg/dL (NEGATIVE) 06/19/17 21:50 Urine Ketones NEGATIVE mg/dL (NEGATIVE) 06/19/17 21:50 Urine Blood NEGATIVE (NEGATIVE) 06/19/17 21:50 Urine Nitrate NEGATIVE (NEGATIVE) 06/19/17 21:50 Urine Bilirubin NEGATIVE (NEGATIVE) 06/19/17 21:50 Urine Urobilinogen 1.0 E.U./dL (0.2 - 1.0) 06/19/17 21:50 Ur Leukocyte Esterase NEGATIVE (NEGATIVE) 06/19/17 21:50 Urine RBC 0-2 /hpf (0-5) H 06/19/17 21:50 Urine WBC 2-5 /hpf (0-5) 06/19/17 21:50 Ur Epithelial Cells OCCASIONAL /lpf (FEW) 06/19/17 21:50 Urine Bacteria FEW /hpf (NONE SEEN) 06/19/17 21:50 Urine Mucus MODERATE /lpf (FEW) 06/19/17 21:50 Phenytoin 14.4 ug/ml (10.0-20.0) 06/20/17 05:47 Carbamazepine 4.2 ug/ml (4.0-12.0) 06/19/17 22:02 Levetiracetam 19.1 ug/mL (10.0-40.0) 06/19/17 22:02 - Physical Exam Vitals and I&O: Vital Signs Temp 97.7 F 06/23/17 08:00 Pulse 71 06/23/17 08:00 Resp 18 06/23/17 08:00 BP 105/78 06/23/17 08:00 Pulse Ox 96 06/23/17 08:00 Intake & Output 06/22/17 06/23/17 06/23/17 18:59 06:59 18:59 Intake Total 500 50 Balance 500 50 Weight (lbs) 82 lb 82 lb Intake: Oral 500 50 Other: # Voids 4 3 # Bowel Movements 0 0 Active Medications: Current Medications Acetaminophen (Tylenol) 650 mg PO Q4HR PRN PRN Reason: MILD PAIN/TEMP>101.0 Stop: 08/19/17 11:11 Carbamazepine (Tegretol) 400 mg PO BID [facility] PRN Reason: Protocol Stop: 08/19/17 08:59 Last Admin: 06/23/17 08:55 Dose: 400 mg Haloperidol (Haldol) 5 mg PO Q8HR [facility] PRN Reason: Protocol Stop: 08/19/17 12:59 Last Admin: 06/23/17 13:10 Dose: 5 mg Lacosamide (Vimpat) 150 mg PO BID [facility] Stop: 08/19/17 08:59 Last Admin: 06/23/17 08:57 Dose: 150 mg Levetiracetam (Keppra) 1,500 mg PO Q12HR [facility] Stop: 08/19/17 08:59 Last Admin: 06/23/17 08:56 Dose: 1,500 mg Lorazepam (Ativan) 2 mg PO TID PRN PRN Reason: ANXIETY Stop: 08/19/17 13:42 Last Admin: 06/20/17 18:56 Dose: 2 mg Lorazepam (Ativan) 1 mg IVP Q4HR PRN; Protocol PRN Reason: seizures or agitation Stop: 08/20/17 08:56 Last Admin: 06/21/17 20:48 Dose: 1 mg Phenytoin (Dilantin) 100 mg PO TID [facility] Stop: 08/19/17 08:59 Last Admin: 06/23/17 13:10 Dose: 100 mg Quetiapine Fumarate (Seroquel) 25 mg PO BID [facility] PRN Reason: Protocol Stop: 08/21/17 16:59 Last Admin: 06/23/17 08:55 Dose: 25 mg Temazepam (Restoril) 15 mg PO HS PRN; Protocol PRN Reason: Insomnia Stop: 08/19/17 11:11 Last Admin: 06/21/17 23:00 Dose: 15 mg Tramadol HCl (Ultram) 50 mg PO Q8HR [facility] Stop: 08/19/17 12:59 Last Admin: 06/23/17 13:10 Dose: 50 mg General: weak, alert HEENT: NC/AT, PERRLA Neck: Supple Lungs: CTAB Cardiovascular: RRR, Normal S1, Normal S2, without murmur Abdomen: soft, non-tender, non-distended, positive bowel sound Neurological: no change Internal Medicine Assmt/Plan - Assessment Assessment: psychosis MR seizure disorder oa - Plan Plan: sitter for safety seizure precautions continue current orders
[2017-06-23 16:18] LABS: ANION GAP 16.3 (7.0-16.0); BUN - UREA NITROGEN 10 mg/dL (7-25); CARBON DIOXIDE 23.2 mEq/L (21.0-31.0); CHLORIDE 101 mEq/L (98-107); CREATININE - SERUM 0.6 mg/dL (0.7-1.3); GFR AFRICAN-AMERICAN > 60.0 ml/min (>90); GFR NON AFRICAN-AMERICAN > 60.0 ml/min; GLUCOSE 119 mg/dL (70-105); POTASSIUM SERUM 3.5 mEq/L (3.5-5.1); SODIUM SERUM 137 mEq/L (136-145)
[2017-06-23 16:19] LABS: CALCIUM SERUM 9.5 mg/dL (8.6-10.3)
--- NOTE | 2017-06-23 21:43 | Progress Notes ---
DATE: 06/23/2017 SUBJECTIVE: Case was discussed with staff of the patient and reviewed records. The patient has been following directions, continues to have poor insight, continues to be unable to make safe plan for his self-care, continues to have episodes of agitation, but he is redirectable. He is sleeping better, eating better. No side effects with the medication, no sedation, no nausea. Thank you very much for allowing me to participate in the care of this most interesting gentleman. JOB# [id number]
--- NOTE | 2017-06-25 23:13 | Discharge Summary ---
DATE OF DISCHARGE: 06/23/2017 HOSPITAL COURSE: The patient was admitted on 06/20/2017, discharged to [facility] on 06/23/2017. Apparently, this patient was admitted because of recurrent seizures and history of seizures, history of osteoarthritis, history of psychosis and some mental delay. The patient was seen by Dr. Chan Negron ____ as well as Dr. Jo, and adjusted the medications, felt better. The patient was in stable condition and on 06/23/2017, discharged with final diagnoses of recurrent seizures, under control; history of seizures; history of psychosis; history of cognitive impairment; history of mental challenges; history of severe osteoarthritis and possible malnutrition. The patient was sent to [facility] where I will be following the patient. CONDITION AT THE TIME OF DISCHARGE: Stable. MEDICATIONS: See reconciliation sheet. ACTIVITY: As tolerated. JOB# [id number]
== END 2017-06-23 20:00 | DRG 101 ==
LOC: ER 20:52 → MSI 06-20 02:00 → TELE 06-20 03:00 → MSI 06-22 07:10
PROVIDERS: ADMIT Internal Medicine; ATTEND Internal Medicine
DX: G40.909 Epilepsy, unspecified, not intractable, without status epilepticus (principal); G93.89 Other specified disorders of brain; F29 Unspecified psychosis not due to a substance or known physiological condition; M19.90 Unspecified osteoarthritis, unspecified site; F79 Unspecified intellectual disabilities; G31.84 Mild cognitive impairment of uncertain or unknown etiology; E87.6 Hypokalemia; I34.0 Nonrheumatic mitral (valve) insufficiency
CPT/HCPCS: 36415-UA; 70450-TC; 71045-TC; 80048-TC; 80053-TC; 80156-TC; 80185-TC; 80299-90; 81001-TC; 84443-TC; 85007-TC; 85025-TC; 85027-TC; 87086-90; 93005; 94760; J1165; J1200; J1630; J2060; J7030; Z7610

== ENCOUNTER 2017-06-29 11:26 | Inpatient (IN) | payer MEDICARE, MEDICAID ==
--- NOTE | 2017-06-29 11:57 | ED Physician Chart ---
ED Chief Complaint/HPI - Patient Information Date Seen:: 06/29/17 Time Seen:: 11:53 Chief Complaint:: GENERALIZED SEIZURE THIS AM Allergies:: Allergies Allergy/AdvReac Type Severity Reaction Status Date / Time No Known Allergies Allergy Verified 06/19/17 21:14 Vitals:: Vital Signs - 8 hr 06/29/17 11:43 Temp 98.9 F HR 91 RR 16 BP 132/84 O2 Sat % 100 Family Medical History - Family Member Mother History Unknown: Yes Ethnicity: Unknown Living Status: Unknown Hx Family Cancer: (unknown) Hx Family Coronary Artery Disease: (UNKNOWN) Hx Family Congestive Heart Failure: (UNKNOWN) Hx Family Hypertension: (UNKNOWN) Hx Family Stroke: (UNKNOWN) Hx Family Diabetes: (UNKNOWN) Hx Family Seizures: (UNKNOWN) Hx Family Dementia: (UNKNOWN) Hx Family AIDS: (UNKNOWN) Hx Family COPD: (UNKNOWN) Hx Family Hepatitis: (UNKNOWN) Hx Family Psychiatric Problems: (UNKNOWN) Hx Family Tuberculosis: (UNKNOWN) ED Labs/Radiology/EKG Results - Lab Results Results: Laboratory Results - last 24 hr 06/29/17 12:10 Sodium 134 L Potassium 3.6 Chloride 101 Carbon Dioxide 28.7 Anion Gap 7.9 BUN 8 Creatinine 0.6 L Est GFR ( Amer) > 60.0 Est GFR (Non-Af Amer) > 60.0 BUN/Creatinine Ratio 13.3 Glucose 93 Calcium 9.7 Phenytoin 4.3 L Carbamazepine 9.7 ED Septic Shock - <6hrs of presentation: Vital Signs: Vital Signs - 8 hr 06/29/17 11:43 Temp 98.9 F HR 91 RR 16 BP 132/84 O2 Sat % 100
[2017-06-29 12:36] LABS: ANION GAP 7.9 (7.0-16.0); BUN - UREA NITROGEN 8 mg/dL (7-25); CALCIUM SERUM 9.7 mg/dL (8.6-10.3); CARBON DIOXIDE 28.7 mEq/L (21.0-31.0); CHLORIDE 101 mEq/L (98-107); CREATININE - SERUM 0.6 mg/dL (0.7-1.3); GFR AFRICAN-AMERICAN > 60.0 ml/min (>90); GFR NON AFRICAN-AMERICAN > 60.0 ml/min; GLUCOSE 93 mg/dL (70-105); PHENYTOIN 4.3 ug/ml (10.0-20.0); POTASSIUM SERUM 3.6 mEq/L (3.5-5.1); SODIUM SERUM 134 mEq/L (136-145)
[2017-06-29 19:20] VITALS: BP 125/65
[2017-06-29] MEDS ORDERED: Pneumococcal Vaccine 0.5 mL Vial IM ONE (22:02)
[2017-06-29] MEDS ORDERED: Lacosamide 10 mg/mL 10mL UDC PO ONE (23:29)
[2017-06-30 07:04] LABS: % BASOPHILS 0.8 % (0.0-2.0); % MONOCYTES 9.4 % (2.0-10.0); % NEUTROPHILS 64.8 % (40.0-80.0); EOSINOPHILE ABSOLUTE 0.3 Th/cmm (0.1-0.4); HEMATOCRIT 40.1 % (41.0-60); HEMOGLOBIN 13.4 gm/dL (12-16); LYMPHOCYTE ABSOLUTE 1.2 Th/cmm (1.5-3.0); MEAN CELL VOLUME 92.3 fl (80-99); MEAN CORPUSCULAR HEMOGLOBIN 30.9 pg (26.0-30.0); MEAN CORPUSCULAR HGB CONC 33.5 pg (28.0-36.0); MEAN PLATELET VOLUME 7.8 fl; MONOCYTE ABSOLUTE 0.5 Th/cmm (0.3-1.0); NEUTROPHILE ABSOLUTE 3.8 Th/cmm (1.8-8.0); PLATELET COUNT 386 Th/cmm (150-400); RED BLOOD COUNT 4.34 Mil/cmm (4.30-5.70); RED CELL DISTRIBUTION WIDTH 12.8 % (11.5-20.0); WHITE BLOOD COUNT 5.8 Th/cmm (4.8-10.8)
[2017-06-30 07:23] LABS: ALKALINE PHOSPHATASE 97 U/L (34-104); ANION GAP 10.3 (7.0-16.0); BILIRUBIN,TOTAL 0.4 mg/dL (0.3-1.0); BUN - UREA NITROGEN 8 mg/dL (7-25); CALCIUM SERUM 9.9 mg/dL (8.6-10.3); CARBON DIOXIDE 26.4 mEq/L (21.0-31.0); CHLORIDE 101 mEq/L (98-107); CREATININE - SERUM 0.6 mg/dL (0.7-1.3); GFR AFRICAN-AMERICAN > 60.0 ml/min (>90); GFR NON AFRICAN-AMERICAN > 60.0 ml/min; GLUCOSE 108 mg/dL (70-105); POTASSIUM SERUM 3.7 mEq/L (3.5-5.1); SGOT 29 U/L (13-39); SGPT/ALT 36 U/L (7-52); SODIUM SERUM 134 mEq/L (136-145); TOTAL PROTEIN,SERUM 7.9 gm/dL (6.0-8.3)
[2017-06-30] MEDS ORDERED: Haloperidol Lactate 5 mg/mL 1mL Vial IM PRN (08:01)
--- NOTE | 2017-06-30 19:29 | Consultation ---
DATE OF CONSULTATION: 06/30/2017 The patient was seen, chart reviewed, discussed with staff. The patient is a 46-year-old male with history of multiple medical problems including seizure, was admitted to medical floor, has been restless, anxious, agitated earlier today. He was aggressive towards staff, would not stay in bed, was trying to hit staff. The patient's wandering on the unit now where he said he likes to walk. The patient is not redirectable. The patient has been uncooperative at times. PAST PSYCHIATRIC HISTORY: Significant for psychosis, possible schizoaffective disorder. PAST MEDICAL HISTORY: As per H and P per Dr. Patel. PSYCHOSOCIAL HISTORY: The patient resides in a prison facility requires complete care. MENTAL STATUS EXAMINATION: Speech is monotonous slightly dysarthric. Affect constricted. The patient is irritable. The patient appears to be paranoid, suspicious. Insight is poor. Judgment is impaired. He is oriented to person who is in the hospital, not oriented to time. The patient's strengths: The patient is passively accepting treatment. The patient's weakness, lack of insight. ASSESSMENT: Schizoaffective disorder. MEDICAL: As in medical history. At this time, given the level of agitation, anger outburst and being difficult to redirect, would recommend psychiatric hospitalization to further stabilize his anger outbursts and agitation. We will continue Seroquel 25 mg p.o. b.i.d. Thank you for the consultation. [facility]# [id number]
--- NOTE | 2017-06-30 21:11 | History and Physical ---
History of Present Illness - HPI Chief Complaint: seizure HPI: This is a 46 year old male who is a prison resident admitted to the telemetry unit due to seizures. Vital Signs: Last Vital Signs Temp 98.4 F 06/30/17 16:00 Pulse 95 06/30/17 16:00 Resp 18 06/30/17 16:00 BP 101/73 06/30/17 16:00 Pulse Ox 95 06/30/17 16:00 Past Medical History Other History: seizure oa Family Medical History - Family Member Mother History Unknown: Yes Ethnicity: Unknown Living Status: Unknown Hx Family Cancer: (unknown) Hx Family Coronary Artery Disease: (UNKNOWN) Hx Family Congestive Heart Failure: (UNKNOWN) Hx Family Hypertension: (UNKNOWN) Hx Family Stroke: (UNKNOWN) Hx Family Diabetes: (UNKNOWN) Hx Family Seizures: (UNKNOWN) Hx Family Dementia: (UNKNOWN) Hx Family AIDS: (UNKNOWN) Hx Family COPD: (UNKNOWN) Hx Family Hepatitis: (UNKNOWN) Hx Family Psychiatric Problems: (UNKNOWN) Hx Family Tuberculosis: (UNKNOWN) Social History Smoke: No Alcohol: None Drugs: None Lives: [facility] - Medications Home Medications: Home Medication Medication Instructions Recorded Type Acetaminophen 650 mg PO Q4HR PRN 06/19/17 History Carbamazepine [Tegretol Xr] 400 mg PO BID 06/19/17 History Diazepam 10 mg RC Q1 PRN 06/19/17 History Haloperidol Lactate [Haldol*] 5 mg IM Q8HR PRN 06/19/17 History Haloperidol [Haldol*] 5 mg PO Q8HR 06/19/17 History Lacosamide [Vimpat] 150 mg PO BID 06/19/17 History Levetiracetam [Keppra] 1,500 mg PO Q12HR 06/19/17 History Lorazepam [Ativan] 2 mg PO TID 06/19/17 History Temazepam [Restoril*] 15 mg PO HS PRN 06/19/17 History Tramadol HCl [Ultram] 50 mg PO Q8HR PRN 06/19/17 History Phenytoin [Dilantin*] 100 mg PO TID cer 06/23/17 Rx QUEtiapine Fumarate [SEROquel] 25 mg PO BID tab 06/23/17 Rx - Allergies Allergies/Adverse Reactions: Allergies Allergy/AdvReac Type Severity Reaction Status Date / Time No Known Allergies Allergy Verified 06/19/17 21:14 Review of Systems - Review of Systems Constitutional: Report: No Significant Eyes: Report: No Significant ENT: Report: No Significant Respiratory: Report: No Significant Cardiovascular: Report: No Significant Neurological: Report: No Significant Physical Exam - Physical Exam HEENT: Report: Ears Nose Throat within normal limits Neck: Report: Within normal limits Cardiovascular Systems: Report: +s1/s2 noted, Regular, Rate and Rhythm Respiratory: Report: Breath Sounds are within normal limits, Clear to Auscultation of lung caicedo Abdomen: Report: Non-tender to palpation Back: Report: Inspection of back is within normal limits. Skin: Report: Color of skin is within normal limits Neuro/Psych: Report: Mood affect is within normal limits - Lab Results All Lab Results last 24 hours: Laboratory Results - last 24 hr 06/30/17 06/30/17 06:25 06:25 WBC 5.8 RBC 4.34 Hgb 13.4 Hct 40.1 L MCV 92.3 MCH 30.9 H MCHC Differential 33.5 RDW 12.8 Plt Count 386 MPV 7.8 Neutrophils % 64.8 Lymphocytes % 20.0 Monocytes % 9.4 Eosinophils % 5.0 Basophils % 0.8 Sodium 134 L Potassium 3.7 Chloride 101 Carbon Dioxide 26.4 Anion Gap 10.3 BUN 8 Creatinine 0.6 L Est GFR ( Amer) > 60.0 Est GFR (Non-Af Amer) > 60.0 BUN/Creatinine Ratio 13.3 Glucose 108 H Calcium 9.9 Total Bilirubin 0.4 AST 29 ALT 36 Alkaline Phosphatase 97 Total Protein 7.9 Albumin 4.0 L Globulin 3.9 Albumin/Globulin Ratio 1.0 - Assessment Assessment: seizure disorder psychosis mr oa - Plan Plan: sitter for safety seizure precautions continue current orders
== END 2017-06-30 21:00 | DRG 101 ==
LOC: ER 11:26 → TELE 16:56
PROVIDERS: ADMIT Internal Medicine; ATTEND Internal Medicine
DX: G40.909 Epilepsy, unspecified, not intractable, without status epilepticus (principal); F25.9 Schizoaffective disorder, unspecified; F29 Unspecified psychosis not due to a substance or known physiological condition; M19.90 Unspecified osteoarthritis, unspecified site; I34.0 Nonrheumatic mitral (valve) insufficiency
CPT/HCPCS: 36415-UA; 80048-TC; 80053-TC; 80156-TC; 80185-TC; 82948-90; 85025-TC; Z7610

== ENCOUNTER 2017-06-30 21:00 | Inpatient (IN) | payer MEDICARE, MEDICAID ==
[2017-06-30 22:24] VITALS: BP 110/77
[2017-06-30] MEDS ORDERED: DIAZEPAM 10 MG RC PRN (22:37)
[2017-06-30] MEDS ORDERED: Haloperidol Lactate 5 mg/mL 1mL Vial IM PRN (22:37)
--- NOTE | 2017-07-01 16:18 | History & Physical ---
ADMIT DATE: 07/01/2017 The patient was initially admitted on 06/29/2017 to regular unit and [facility] 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 PAST MEDICAL HISTORY: As noted above. PAST SURGICAL HISTORY: Unremarkable. FAMILY HISTORY: Unremarkable. PHYSICAL EXAMINATION: GENERAL: The patient is alert, oriented, male patient. VITAL SIGNS: Noted in the chart. HEAD: Normal. ENT: Normal. NECK: Supple, nontender. LUNGS: Clear. CARDIOVASCULAR SYSTEM: S1, S2 heard. ABDOMEN: Soft. Bowel sounds are heard. CENTRAL NERVOUS SYSTEM: Grossly normal. DIAGNOSES: History of seizure disorder, psychosis, history of mental retardation, osteoarthritis. The patient was to follow the medical aid and see the patient psychiatrically also. JOB# [id number]
--- NOTE | 2017-07-02 01:02 | Psychosocial Evaluation ---
DATE OF SERVICE: PSYCHIATRIC INITIAL EVALUATION AND MENTAL STATUS EXAM PATIENT'S AGE: 46. SEX: Male. PHYSICIAN: Dr. Cavazos. CHIEF COMPLAINT: Currently sedated, but was agitated. HISTORY OF PRESENT ILLNESS: The patient is a 46-year-old male, who was transferred from [place] [facility] to my care and by mistake was seen by Dr. Harley. The patient has been agitated in the care home and has been aggressive and unable to follow directions. Currently and after the patient was seen in med-surg unit has been taking a lot of medications and the patient is very sedated and he is not able to communicate his needs and he was not able to follow any directions. Also, has been sedated and sleeping all the time. The patient also has been not able to answer any of my questions. I tried to interview the patient, but he was not able to give any answers. CURRENT MEDICATIONS: The patient is taking Dilantin 100 mg 3 times a day, Tegretol 400 mg twice a day, Haldol 5 mg 3 times a day, Seroquel 25 mg twice a day, and Keppra 1500 mg twice a day. PAST PSYCHIATRIC HISTORY: The patient has history of seizure disorder, but also seems to have history of psychosis. PAST MEDICAL HISTORY: Seizure disorder. SOCIAL HISTORY: The patient lives in [place]. No known alcohol or street drug use. ALLERGIES: No known allergies. MENTAL STATUS EXAMINATION: The patient appears older than stated age. Disheveled. Sedated. Not able to answer any of my questions. The patient did not answer question regarding hallucinations or delusions or regarding suicide or homicide. The patient is sedated and unable to assess orientation or memory at this time. Poor insight and judgment and unable to assess the rest of the mental status exam. ASSESSMENT/PRIMARY DIAGNOSIS: Unspecified psychosis. SECONDARY DIAGNOSIS: Seizure. MEDICAL DIAGNOSIS: Seizure disorder. TREATMENT PLAN: We will discontinue Valium and decrease Ativan. Also, we will discontinue Haldol and we will give Haldol only on a p.r.n. basis. We will continue Haldol p.r.n. We will monitor psychotropic medications. ESTIMATED LENGTH OF STAY: 5-7 days. THE PATIENT'S STRENGTHS AND WEAKNESSES: The patient's have supportive team in [facility]. Weaknesses are ineffective coping and his agitation. AFTER DISCHARGE PLAN: Outpatient treatment and followup will continue as an outpatient. CRITERIA FOR DISCHARGE: The patient will not be psychotic and will stabilize psychotropic medications and establish outpatient treatment plans. [facility]# [id number]
--- NOTE | 2017-07-02 11:37 | General Progress Note ---
Subjective - Review of Systems Events since last encounter: patient still irritable anxious denies pain Objective - Physical Exam Vitals and I&O: Vital Signs Temp 98 F 07/02/17 06:51 Pulse 85 07/02/17 06:51 Resp 20 07/02/17 06:51 BP 112/80 07/02/17 06:51 Pulse Ox 98 07/02/17 06:51 Intake & Output 07/01/17 07/02/17 07/02/17 18:59 06:59 18:59 Intake Total 120 120 Balance 120 120 Intake: Oral 120 120 Other: # Voids 1 3 Active Medications: Current Medications Acetaminophen (Tylenol) 650 mg PO Q4HR PRN PRN Reason: MILD PAIN/TEMP>101.0 Stop: 08/29/17 22:36 Carbamazepine (Tegretol) 400 mg PO BID [facility] Stop: 08/30/17 09:59 Last Admin: 07/02/17 08:46 Dose: 400 mg Haloperidol (Haldol) 5 mg PO Q8HR PRN; Protocol PRN Reason: Agitation Stop: 08/30/17 04:59 Lacosamide (Vimpat) 150 mg PO BID [facility] Stop: 08/30/17 09:59 Last Admin: 07/02/17 08:45 Dose: 150 mg Levetiracetam (Keppra) 1,500 mg PO Q12HR [facility] Stop: 08/30/17 08:59 Last Admin: 07/02/17 08:45 Dose: 1,500 mg Lorazepam (Ativan) 0.5 mg PO Q4HR PRN; Protocol PRN Reason: Agitation Stop: 07/31/17 00:01 Last Admin: 07/01/17 00:18 Dose: 0.5 mg Lorazepam (Ativan) 1 mg PO TID [facility] Stop: 08/30/17 15:47 Last Admin: 07/02/17 08:46 Dose: 1 mg Phenytoin (Dilantin) 100 mg PO TID [facility] Stop: 08/30/17 08:59 Last Admin: 07/02/17 08:45 Dose: 100 mg Quetiapine Fumarate (Seroquel) 25 mg PO BID [facility] PRN Reason: Protocol Stop: 08/30/17 08:59 Last Admin: 07/02/17 08:46 Dose: 25 mg Temazepam (Restoril) 15 mg PO HS PRN; Protocol PRN Reason: Insomnia Stop: 08/29/17 22:36 Tramadol HCl (Ultram) 50 mg PO Q8HR PRN PRN Reason: MOD/SEVERE PAIN Stop: 08/29/17 22:36
[2017-07-02 16:43] LABS: PHENYTOIN < 2.5 ug/ml (10.0-20.0)
--- NOTE | 2017-07-03 17:50 | Internal Medicine Prog Note ---
Internal Medicine Subjective - Subjective Service Date: 07/03/17 Patient seen and examined:: with staff Patient is:: awake, verbal Per staff patient has:: no adverse event, tolerating meds Internal Medicine Objective - Results Recent Labs: Laboratory Last Values Phenytoin < 2.5 ug/ml (10.0-20.0) L 07/02/17 15:50 Carbamazepine 8.0 ug/ml (4.0-12.0) 07/02/17 15:50 - Physical Exam Vitals and I&O: Vital Signs Temp 98.7 F 07/03/17 14:22 Pulse 85 07/03/17 14:22 Resp 20 07/03/17 14:22 BP 100/72 07/03/17 14:22 Pulse Ox 96 07/03/17 14:22 Active Medications: Current Medications Acetaminophen (Tylenol) 650 mg PO Q4HR PRN PRN Reason: MILD PAIN/TEMP>101.0 Stop: 08/29/17 22:36 Carbamazepine (Tegretol) 400 mg PO BID [facility] Stop: 08/30/17 09:59 Last Admin: 07/03/17 08:41 Dose: 400 mg Haloperidol (Haldol) 5 mg PO Q8HR PRN; Protocol PRN Reason: Agitation Stop: 08/30/17 04:59 Lacosamide (Vimpat) 150 mg PO BID [facility] Stop: 08/30/17 09:59 Last Admin: 07/03/17 08:39 Dose: 150 mg Levetiracetam (Keppra) 1,500 mg PO Q12HR [facility] Stop: 08/30/17 08:59 Last Admin: 07/03/17 08:41 Dose: 1,500 mg Lorazepam (Ativan) 0.5 mg PO Q4HR PRN; Protocol PRN Reason: Agitation Stop: 07/31/17 00:01 Last Admin: 07/03/17 01:17 Dose: 0.5 mg Lorazepam (Ativan) 1 mg PO TID [facility] Stop: 08/30/17 15:47 Last Admin: 07/03/17 14:52 Dose: 1 mg Phenytoin (Dilantin) 100 mg PO TID [facility] Stop: 08/30/17 08:59 Last Admin: 07/03/17 14:52 Dose: 100 mg Quetiapine Fumarate (Seroquel) 25 mg PO BID [facility] PRN Reason: Protocol Stop: 08/30/17 08:59 Last Admin: 07/03/17 08:42 Dose: 25 mg Temazepam (Restoril) 15 mg PO HS PRN; Protocol PRN Reason: Insomnia Stop: 08/29/17 22:36 Last Admin: 07/02/17 20:33 Dose: 15 mg Tramadol HCl (Ultram) 50 mg PO Q8HR PRN PRN Reason: MOD/SEVERE PAIN Stop: 08/29/17 22:36 General: alert HEENT: NC/AT, PERRLA Neck: Supple Abdomen: soft, non-tender Internal Medicine Assmt/Plan - Assessment Assessment: seizure disorder psychosis hx mr oa - Plan Plan: continue current orders
--- NOTE | 2017-07-04 15:16 | Progress Notes ---
DATE: 07/04/2017 SUBJECTIVE: The patient was seen in his room, lying in the bed. The patient appears to be guarded and irritable. Otherwise, appears to be in no acute distress. OBJECTIVE: VITAL SIGNS: Temperature 98.4, heart rate 74, blood pressure 116/65, respirations 21, and 98% on room air. HEENT: Head is atraumatic and normocephalic. Eyes: Bilateral conjunctivae are clear. Bilateral pupils are equally round and reactive. NECK: Supple. No JVD. CARDIOVASCULAR: S1 and S2, without murmur. PULMONARY: Clear to auscultation. GASTROINTESTINAL: Soft and nontender without guarding. Positive bowel sounds. MUSCULOSKELETAL: No clubbing. No cyanosis noted. ASSESSMENT: 1. Acute psychosis. 2. Seizure disorder. 3. Osteoarthritis. PLAN: We will give the patient inpatient Psychiatric Unit. We will follow up with the psychiatrist to monitor the patient's condition and behavior. We will put the patient on seizure precaution. Treatment plans were discussed with the patient's nurse. Treatment plans were discussed with Dr. Patel. JOB# [id number]
--- NOTE | 2017-07-04 22:05 | Progress Notes ---
DATE: PSYCHIATRIC PROGRESS NOTE SUBJECTIVE: Chart reviewed. The patient interviewed. Also discussed the patient's condition with the staff and reviewed the records and labs. The patient is still anxious and he is still depressed and having episodes of anger and irritability. The patient also still needs close monitoring and needs redirections. The patient also is interacting with paranoia and is conscious. Otherwise, the patient is compliant with taking his medications with no side effects of medications. ASSESSMENT: The patient is less paranoid and less suspicious. TREATMENT PLAN: Continue to monitor his behavior and his condition closely. Also, continue adjusting psychotropic medications and continue to follow up closely. The patient does not seem to be as groggy and as sedated like before. JOB# [id number]
--- NOTE | 2017-07-04 22:26 | Progress Notes ---
DATE: 07/02/2017 SUBJECTIVE: Chart reviewed and the patient interviewed. Also discussed the patient's condition with the staff and reviewed records and labs. The patient seems to be more alert and he is not as sedated as before. He is still confused and restless and he is still having episodes of irritability and anger. The patient also is having difficulty of expressing himself and his needs. On the other hand, the patient is not as sedated and not aggressive. ASSESSMENT: The patient is still confused and needs close monitoring. TREATMENT PLAN: Continue to monitor his behavior and his condition closely. Also, continue to work on behavioral modification and adjusting psychotropic medications. JOB# [id number]
--- NOTE | 2017-07-04 22:36 | Progress Notes ---
DATE: 07/03/2017 SUBJECTIVE: Chart reviewed and the patient interviewed. Also discussed the patient's condition with the staff and reviewed records and labs. The patient is still combative and he is still fighting with staff. The patient also is still wandering in the hallway and gets agitated when staff tries to redirect him. Also, is still restless and is still in irritable mood, but at the same time easy to redirect him. ASSESSMENT: The patient still has periods of aggression, but patient seems to be more alert and cooperative with treatment. TREATMENT PLAN: Continue monitoring his behavior closely and continue psychotropic medication and follow up closely. JOB# [id number]
--- NOTE | 2017-07-05 06:02 | Progress Notes ---
DATE: 07/04/2017 Chart reviewed and the patient interviewed. Also, discussed the patient's condition with the staff and reviewed records and labs. The patient is less agitated and less irritable. The patient also is cooperative with treatment and is interacting more. The patient also denies any intention to harm self or others. The patient also is not sedated and interacting more. ASSESSMENT: The patient is still agitated but not psychotic. TREATMENT PLAN: Continue to monitor his behavior and his condition closely. Also, continue to work on unpredictable behavior and on his psychosis and adjusting psychotropic medications. JOB# [id number]
--- NOTE | 2017-07-05 10:09 | General Progress Note ---
Subjective - Review of Systems Events since last encounter: patient irritable awake , in no acute distress Objective - Results Recent Labs: Laboratory Last Values Phenytoin < 2.5 ug/ml (10.0-20.0) L 07/02/17 15:50 Carbamazepine 8.0 ug/ml (4.0-12.0) 07/02/17 15:50 - Physical Exam Vitals and I&O: Vital Signs Temp 97.9 F 07/05/17 05:51 Pulse 74 07/05/17 05:51 Resp 20 07/05/17 05:51 BP 101/70 07/05/17 05:51 Pulse Ox 98 07/05/17 05:51 Intake & Output 07/04/17 07/05/17 07/05/17 17:59 06:59 18:59 Intake Total Balance Intake: Oral Other: # Voids # Bowel Movements Active Medications: Current Medications Acetaminophen (Tylenol) 650 mg PO Q4HR PRN PRN Reason: MILD PAIN/TEMP>101.0 Stop: 08/29/17 22:36 Carbamazepine (Tegretol) 400 mg PO BID [facility] Stop: 08/30/17 09:59 Last Admin: 07/05/17 09:58 Dose: 400 mg Haloperidol (Haldol) 5 mg PO Q8HR PRN; Protocol PRN Reason: Agitation Stop: 08/30/17 04:59 Lacosamide (Vimpat) 150 mg PO BID [facility] Stop: 08/30/17 09:59 Last Admin: 07/05/17 10:00 Dose: 150 mg Levetiracetam (Keppra) 1,500 mg PO Q12HR [facility] Stop: 08/30/17 08:59 Last Admin: 07/05/17 10:00 Dose: 1,500 mg Lorazepam (Ativan) 0.5 mg PO Q4HR PRN; Protocol PRN Reason: Agitation Stop: 07/31/17 00:01 Last Admin: 07/03/17 01:17 Dose: 0.5 mg Lorazepam (Ativan) 1 mg PO TID [facility] Stop: 08/30/17 15:47 Last Admin: 07/05/17 09:59 Dose: 1 mg Phenytoin (Dilantin) 100 mg PO TID [facility] Stop: 08/30/17 08:59 Last Admin: 07/05/17 09:00 Dose: 100 mg Quetiapine Fumarate (Seroquel) 25 mg PO BID [facility] PRN Reason: Protocol Stop: 08/30/17 08:59 Last Admin: 07/05/17 10:00 Dose: 25 mg Temazepam (Restoril) 15 mg PO HS PRN; Protocol PRN Reason: Insomnia Stop: 08/29/17 22:36 Last Admin: 07/03/17 21:53 Dose: 15 mg Tramadol HCl (Ultram) 50 mg PO Q8HR PRN PRN Reason: MOD/SEVERE PAIN Stop: 08/29/17 22:36
--- NOTE | 2017-07-06 09:29 | General Progress Note ---
Subjective - Review of Systems Events since last encounter: patient awake seems confused Objective - Results Recent Labs: Laboratory Last Values Phenytoin < 2.5 ug/ml (10.0-20.0) L 07/02/17 15:50 Carbamazepine 8.0 ug/ml (4.0-12.0) 07/02/17 15:50 - Physical Exam Vitals and I&O: Vital Signs Temp 98.5 F 07/06/17 05:59 Pulse 66 07/06/17 05:59 Resp 19 07/06/17 05:59 BP 103/68 07/06/17 05:59 Pulse Ox 95 07/06/17 05:59 Intake & Output 07/05/17 07/06/17 07/06/17 18:59 06:59 18:59 Intake Total 600 120 Balance 600 120 Intake: Oral 600 120 Other: # Voids 2 2 # Bowel Movements 0 Active Medications: Current Medications Acetaminophen (Tylenol) 650 mg PO Q4HR PRN PRN Reason: MILD PAIN/TEMP>101.0 Stop: 08/29/17 22:36 Carbamazepine (Tegretol) 400 mg PO BID [facility] Stop: 08/30/17 09:59 Last Admin: 07/06/17 08:54 Dose: 400 mg Haloperidol (Haldol) 5 mg PO Q8HR PRN; Protocol PRN Reason: Agitation Stop: 08/30/17 04:59 Lacosamide (Vimpat) 150 mg PO BID [facility] Stop: 08/30/17 09:59 Last Admin: 07/05/17 16:43 Dose: 150 mg Levetiracetam (Keppra) 1,500 mg PO Q12HR [facility] Stop: 08/30/17 08:59 Last Admin: 07/06/17 08:53 Dose: 1,500 mg Lorazepam (Ativan) 0.5 mg PO Q4HR PRN; Protocol PRN Reason: Agitation Stop: 07/31/17 00:01 Last Admin: 07/03/17 01:17 Dose: 0.5 mg Lorazepam (Ativan) 1 mg PO TID [facility] Stop: 08/30/17 15:47 Last Admin: 07/06/17 08:54 Dose: 1 mg Phenytoin (Dilantin) 100 mg PO TID [facility] Stop: 08/30/17 08:59 Last Admin: 07/06/17 08:54 Dose: 100 mg Quetiapine Fumarate (Seroquel) 25 mg PO BID [facility] PRN Reason: Protocol Stop: 08/30/17 08:59 Last Admin: 07/06/17 08:53 Dose: 25 mg Temazepam (Restoril) 15 mg PO HS PRN; Protocol PRN Reason: Insomnia Stop: 08/29/17 22:36 Last Admin: 07/03/17 21:53 Dose: 15 mg Tramadol HCl (Ultram) 50 mg PO Q8HR PRN PRN Reason: MOD/SEVERE PAIN Stop: 08/29/17 22:36
--- NOTE | 2017-07-06 19:50 | Progress Notes ---
DATE: 07/06/2017 A 46-year-old male transferred from [place] confused, disoriented, not able to follow directions, have been aggressive. The patient is stating that he wants to go home. He does not know why he is here. Apparently suffers from seizures. Dr. Cavazos saw the patient over the weekend noting that he was somewhat agitated, but less so and seemed to be improving and was in general more cooperative. The patient calm. Staff noting improvement. Seems to be following unit rules and directions. ASSESSMENT: The patient with noted improvement. It seems that he has a safe discharge plan in place. We will monitor for further 24 hours. He seems to be tolerating his medications, which I did review. JOB# [id number]
--- NOTE | 2017-07-07 16:20 | Internal Medicine Prog Note ---
Internal Medicine Subjective - Subjective Service Date: 07/07/17 Patient is:: awake, verbal Per staff patient has:: no adverse event, tolerating meds Internal Medicine Objective - Results Recent Labs: Laboratory Last Values Phenytoin < 2.5 ug/ml (10.0-20.0) L 07/02/17 15:50 Carbamazepine 8.0 ug/ml (4.0-12.0) 07/02/17 15:50 - Physical Exam Vitals and I&O: Vital Signs Temp 97.7 F 07/07/17 05:36 Pulse 84 07/07/17 05:36 Resp 19 07/07/17 11:13 BP 109/73 07/07/17 05:36 Pulse Ox 100 07/07/17 05:36 Intake & Output 07/06/17 07/07/17 07/07/17 18:59 06:59 18:59 Intake Total 300 Balance 300 Intake: Oral 300 Other: # Voids 2 # Bowel Movements 0 Active Medications: Current Medications Acetaminophen (Tylenol) 650 mg PO Q4HR PRN PRN Reason: MILD PAIN/TEMP>101.0 Stop: 08/29/17 22:36 Carbamazepine (Tegretol) 400 mg PO BID [facility] Stop: 08/30/17 09:59 Last Admin: 07/07/17 09:18 Dose: 400 mg Haloperidol (Haldol) 5 mg PO Q8HR PRN; Protocol PRN Reason: Agitation Stop: 08/30/17 04:59 Lacosamide (Vimpat) 150 mg PO BID [facility] Stop: 08/30/17 09:59 Last Admin: 07/07/17 09:18 Dose: 150 mg Levetiracetam (Keppra) 1,500 mg PO Q12HR [facility] Stop: 08/30/17 08:59 Last Admin: 07/07/17 09:18 Dose: 1,500 mg Lorazepam (Ativan) 0.5 mg PO Q4HR PRN; Protocol PRN Reason: Agitation Stop: 07/31/17 00:01 Last Admin: 07/03/17 01:17 Dose: 0.5 mg Lorazepam (Ativan) 1 mg PO TID [facility] Stop: 08/30/17 15:47 Last Admin: 07/07/17 15:43 Dose: 1 mg Phenytoin (Dilantin) 100 mg PO TID [facility] Stop: 08/30/17 08:59 Last Admin: 07/07/17 15:43 Dose: 100 mg Quetiapine Fumarate (Seroquel) 25 mg PO BID [facility] PRN Reason: Protocol Stop: 08/30/17 08:59 Last Admin: 07/07/17 09:18 Dose: 25 mg Temazepam (Restoril) 15 mg PO HS PRN; Protocol PRN Reason: Insomnia Stop: 08/29/17 22:36 Last Admin: 07/03/17 21:53 Dose: 15 mg Tramadol HCl (Ultram) 50 mg PO Q8HR PRN PRN Reason: MOD/SEVERE PAIN Stop: 08/29/17 22:36 General: alert HEENT: NC/AT, PERRLA Neck: Supple Abdomen: soft, non-tender Internal Medicine Assmt/Plan - Assessment Assessment: seizure disorder psychosis hx mr oa - Plan Plan: continue current orders
--- NOTE | 2017-07-07 16:52 | Progress Notes ---
DATE: 07/07/2017 The patient is currently in the hospital, agitated, transferred from [place], had been aggressive, agitated. Medications were noted on namt-rs-case. The patient is currently in a [place] chair, quite tired at this time, remains still quite impulsive, unpredictable, still with lashing out behaviors. He does seem to be calmer overall, especially given his initial presentation. He seems somewhat more cooperative. The patient had seizure activity this morning. He seems significantly calmer, somewhat sedated this morning, possibly postictal. We are working on placement, placement has not been confirmed. No safe placement and discharge plan in place, but hospice case manager is working on it. JOB# [id number]
--- NOTE | 2017-07-08 16:56 | Internal Medicine Prog Note ---
Internal Medicine Subjective - Subjective Patient is:: awake, verbal Per staff patient has:: no adverse event, tolerating meds Internal Medicine Objective - Results Recent Labs: Laboratory Last Values Phenytoin < 2.5 ug/ml (10.0-20.0) L 07/02/17 15:50 Carbamazepine 8.0 ug/ml (4.0-12.0) 07/02/17 15:50 - Physical Exam Vitals and I&O: Vital Signs Temp 97.2 F 07/08/17 15:38 Pulse 81 07/08/17 15:38 Resp 20 07/08/17 15:38 BP 108/70 07/08/17 15:38 Pulse Ox 100 07/08/17 15:38 Intake & Output 07/07/17 07/08/17 07/08/17 18:59 06:59 18:59 Intake Total 180 Balance 180 Intake: Oral 180 Other: # Voids 3 # Bowel Movements 0 Active Medications: Current Medications Acetaminophen (Tylenol) 650 mg PO Q4HR PRN PRN Reason: MILD PAIN/TEMP>101.0 Stop: 08/29/17 22:36 Carbamazepine (Tegretol) [address] [facility] Stop: 08/30/17 09:59 Last Admin: 07/08/17 08:31 Dose: 400 mg Haloperidol (Haldol) 5 mg PO Q8HR PRN; Protocol PRN Reason: Agitation Stop: 08/30/17 04:59 Lacosamide (Vimpat) [address] [facility] Stop: 08/30/17 09:59 Last Admin: 07/08/17 08:30 Dose: 150 mg Levetiracetam (Keppra) 1,[address] [facility] Stop: 08/30/17 08:59 Last Admin: 07/08/17 08:30 Dose: 1,500 mg Lorazepam (Ativan) 0.5 mg PO Q4HR PRN; Protocol PRN Reason: Agitation Stop: 07/31/17 00:01 Last Admin: 07/03/17 01:17 Dose: 0.5 mg Lorazepam (Ativan) [address] [facility] Stop: 08/30/17 15:47 Last Admin: 07/08/17 14:52 Dose: 1 mg Phenytoin (Dilantin) [address] [facility] Stop: 08/30/17 08:59 Last Admin: 07/08/17 14:52 Dose: 100 mg Quetiapine Fumarate (Seroquel) 25 mg PO BID [facility] PRN Reason: Protocol Stop: 08/30/17 08:59 Last Admin: 07/08/17 08:31 Dose: 25 mg Temazepam (Restoril) 15 mg PO HS PRN; Protocol PRN Reason: Insomnia Stop: 08/29/17 22:36 Last Admin: 07/03/17 21:53 Dose: 15 mg Tramadol HCl (Ultram) 50 mg PO Q8HR PRN PRN Reason: MOD/SEVERE PAIN Stop: 08/29/17 22:36 General: alert HEENT: NC/AT, PERRLA Neck: Supple Abdomen: soft, non-tender Nutritional Asmnt/Malnutr-PDOC - Dietary Evaluation Malnutrition Findings (Please click <Entered> for more info): Nutritional Asmnt/Malnutrition Start: 07/07/17 17: 29 Text: Status: Complete Freq: Document 07/07/17 17:30 [email or web address] (Rec: 07/07/17 17:40 [email or web address]) Nutritional Asmnt/Malnutrition Patient General Information Nutritional Screening Low Risk Diagnosis psychosis Pertinent Medical Hx/Surgical Hx seizure, psychosis, mental retardation, OA Subjective Information Pt seen eating in alison-chair in hallway. Pt stated he is on diet. RN reported pt usually eat 100% of breakfast but refuse lunch and dinner. Pt now was eating a small sandwich, saying he want to go home. Current Diet Order/ Nutrition Support regular Pertinent Medications seroquel Pertinent Labs no nutrition related labs Nutritional Hx/Data Height 1.65 m Height (Calculated Centimeters) 165.1 Current Weight (lbs) 87.09 kg Weight (Calculated Kilograms) 87.1 Weight (Calculated Grams) 26416.7 [place] Body Weight 136 Body Mass Index (BMI) 31.9 Weight Status Obese GI Symptoms GI Symptoms None Last BM 3/10 Difficult in: None Skin Integrity/Comment: intact Estimated Nutritional Goals BEE in Kcals: Adj wt of IBW Calories/Kcals/Kg 25-30 Kcals Calculated 1842-2341 Protein: Adj wt of IBW Protein g/k Protein Calculated 68 Fluid: ml 1700-2040ml (1ml/ckal) Nutritional Problem 1. Problem Problem inadequate food intake Etiology possible cognition Signs/Symptoms: pt refusing lunch and dinner Malnutrition Alert Protein-Calorie Malnutrition N/A Is there a minimum of two criteria No selected? Query Text:Check all the applicable criteria. A minimum of two criteria are recommended for diagnosis of either severe or non-severe malnutrition. Intervention/Recommendation Comments 1. Continue with current diet as ordered. Encouraged PO intake. If pt does not want big meal, try to give pt small salad, soup, sandwich. RN notified. 2. Monitor PO intake, wt, labs and skin integrity 3. F/U as moderate risk in 3-5 days, 07/10-07/12 Expected Outcomes/Goals Expected Outcomes/Goals 1. PO intake to meet at least 75% of nutritional needs. 2. Wt stability, skin to remain intact, labs to approach WNL.
--- NOTE | 2017-07-09 05:53 | Progress Notes ---
DATE: 07/08/2017 SUBJECTIVE: Chart reviewed and the patient interviewed. Also discussed the patient's condition with the staff and reviewed records and labs. The patient still has episodes of irritability and agitation that seems to be less than before. The patient also still seems to be suspicious and paranoid and he is thinking that somebody is going to hurt him especially his roommate. He also is still having slight tremors. Otherwise, the patient is cooperative and compliant with taking his medications with no side effects of medications. ASSESSMENT: The patient is still agitated and psychotic. TREATMENT PLAN: We will continue monitoring his behavior and his condition closely. Also, we will work on discharge plans and on placement issue and will continue to follow up. JOB# [id number]
--- NOTE | 2017-07-09 08:50 | General Progress Note ---
Subjective - Review of Systems Events since last encounter: patient still psychotic Objective - Results Recent Labs: Laboratory Last Values Phenytoin < 2.5 ug/ml (10.0-20.0) L 07/02/17 15:50 Carbamazepine 8.0 ug/ml (4.0-12.0) 07/02/17 15:50 - Physical Exam Vitals and I&O: Vital Signs Temp 97.8 F 07/09/17 05:32 Pulse 64 07/09/17 05:32 Resp 18 07/09/17 05:32 BP 104/64 07/09/17 05:32 Pulse Ox 97 07/09/17 05:32 Intake & Output 07/08/17 07/09/17 07/09/17 18:59 06:59 18:59 Intake Total 1000 740 Balance 1000 740 Intake: Oral 1000 740 Other: # Voids 2 1 # Bowel Movements 0 Active Medications: Current Medications Acetaminophen (Tylenol) 650 mg PO Q4HR PRN PRN Reason: MILD PAIN/TEMP>101.0 Stop: 08/29/17 22:36 Benztropine Mesylate (Cogentin) 0.5 mg PO BID [facility] Stop: 09/07/17 08:59 Carbamazepine (Tegretol) 400 mg PO BID [facility] Stop: 08/30/17 09:59 Last Admin: 07/08/17 17:28 Dose: 400 mg Haloperidol (Haldol) 5 mg PO Q8HR PRN; Protocol PRN Reason: Agitation Stop: 08/30/17 04:59 Lacosamide (Vimpat) 150 mg PO BID [facility] Stop: 08/30/17 09:59 Last Admin: 07/08/17 17:28 Dose: 150 mg Levetiracetam (Keppra) 1,500 mg PO Q12HR [facility] Stop: 08/30/17 08:59 Last Admin: 07/08/17 21:16 Dose: 1,500 mg Lorazepam (Ativan) 0.5 mg PO Q4HR PRN; Protocol PRN Reason: Agitation Stop: 07/31/17 00:01 Last Admin: 07/03/17 01:17 Dose: 0.5 mg Lorazepam (Ativan) 1 mg PO TID [facility] Stop: 08/30/17 15:47 Last Admin: 07/08/17 21:16 Dose: 1 mg Phenytoin (Dilantin) 100 mg PO TID [facility] Stop: 08/30/17 08:59 Last Admin: 07/08/17 21:16 Dose: 100 mg Quetiapine Fumarate (Seroquel) 25 mg PO BID [facility] PRN Reason: Protocol Stop: 08/30/17 08:59 Last Admin: 07/08/17 17:28 Dose: 25 mg Temazepam (Restoril) 15 mg PO HS PRN; Protocol PRN Reason: Insomnia Stop: 08/29/17 22:36 Last Admin: 07/08/17 21:16 Dose: 15 mg Tramadol HCl (Ultram) 50 mg PO Q8HR PRN PRN Reason: MOD/SEVERE PAIN Stop: 08/29/17 22:36 Nutritional Asmnt/Malnutr-PDOC - Dietary Evaluation Malnutrition Findings (Please click <Entered> for more info): Nutritional Asmnt/Malnutrition Start: 07/07/17 17: 29 Text: Status: Complete Freq: Document 07/07/17 17:30 GIORGIO (Rec: 07/07/17 17:40 [email or web address]) Nutritional Asmnt/Malnutrition Patient General Information Nutritional Screening Low Risk Diagnosis psychosis Pertinent Medical Hx/Surgical Hx seizure, psychosis, mental retardation, OA Subjective Information Pt seen eating in alison-chair in hallway. Pt stated he is on diet. RN reported pt usually eat 100% of breakfast but refuse lunch and dinner. Pt now was eating a small sandwich, saying he want to go home. Current Diet Order/ Nutrition Support regular Pertinent Medications seroquel Pertinent Labs no nutrition related labs Nutritional Hx/Data Height 1.65 m Height (Calculated Centimeters) 165.1 Current Weight (lbs) 87.09 kg Weight (Calculated Kilograms) 87.1 Weight (Calculated Grams) 64526.7 [place] Body Weight 136 Body Mass Index (BMI) 31.9 Weight Status Obese GI Symptoms GI Symptoms None Last BM 3/10 Difficult in: None Skin Integrity/Comment: intact Estimated Nutritional Goals BEE in Kcals: Adj wt of IBW Calories/Kcals/Kg 25-30 Kcals Calculated 7634-4152 Protein: Adj wt of IBW Protein g/k Protein Calculated 68 Fluid: ml 1700-2040ml (1ml/ckal) Nutritional Problem 1. Problem Problem inadequate food intake Etiology possible cognition Signs/Symptoms: pt refusing lunch and dinner Malnutrition Alert Protein-Calorie Malnutrition N/A Is there a minimum of two criteria No selected? Query Text:Check all the applicable criteria. A minimum of two criteria are recommended for diagnosis of either severe or non-severe malnutrition. Intervention/Recommendation Comments 1. Continue with current diet as ordered. Encouraged PO intake. If pt does not want big meal, try to give pt small salad, soup, sandwich. RN notified. 2. Monitor PO intake, wt, labs and skin integrity 3. F/U as moderate risk in 3-5 days, 07/10-07/12 Expected Outcomes/Goals Expected Outcomes/Goals 1. PO intake to meet at least 75% of nutritional needs. 2. Wt stability, skin to remain intact, labs to approach WNL.
--- NOTE | 2017-07-09 09:53 | Progress Notes ---
DATE: SUBJECTIVE: Chart reviewed and the patient interviewed. Also discussed the patient's condition with the staff and reviewed records and labs. The patient is still confused and anxious. The patient also is still having difficulty following staff directions. Also, is still paranoid and thinking that somebody is going to harm him, especially his roommate. He also is still having difficulty following directions. ASSESSMENT: The patient is still agitated and psychotic. TREATMENT PLAN: We will add Cogentin 0.5 mg twice a day and we will monitor the positive or negative effect of Cogentin on the patient. Also, we will continue to work on his irritability and continue to follow up closely with his behavior. JOB# [id number]
--- NOTE | 2017-07-09 13:47 | Internal Medicine Prog Note ---
Internal Medicine Subjective - Subjective Service Date: 07/09/17 Patient is:: awake, verbal Per staff patient has:: no adverse event, tolerating meds Internal Medicine Objective - Results Recent Labs: Laboratory Last Values Phenytoin < 2.5 ug/ml (10.0-20.0) L 07/02/17 15:50 Carbamazepine 8.0 ug/ml (4.0-12.0) 07/02/17 15:50 - Physical Exam Vitals and I&O: Vital Signs Temp 97.8 F 07/09/17 05:32 Pulse 64 07/09/17 05:32 Resp 20 07/09/17 08:00 BP 104/64 07/09/17 05:32 Pulse Ox 97 07/09/17 05:32 Intake & Output 07/08/17 07/09/17 07/09/17 18:59 06:59 18:59 Intake Total 1000 740 Balance 1000 740 Intake: Oral 1000 740 Other: # Voids 2 1 # Bowel Movements 0 Active Medications: Current Medications Acetaminophen (Tylenol) 650 mg PO Q4HR PRN PRN Reason: MILD PAIN/TEMP>101.0 Stop: 08/29/17 22:36 Benztropine Mesylate (Cogentin) 0.5 mg PO BID [facility] Stop: 09/07/17 08:59 Last Admin: 07/09/17 09:42 Dose: 0.5 mg Carbamazepine (Tegretol) 400 mg PO BID [facility] Stop: 08/30/17 09:59 Last Admin: 07/09/17 09:42 Dose: 400 mg Haloperidol (Haldol) 5 mg PO Q8HR PRN; Protocol PRN Reason: Agitation Stop: 08/30/17 04:59 Lacosamide (Vimpat) 150 mg PO BID [facility] Stop: 08/30/17 09:59 Last Admin: 07/09/17 09:41 Dose: 150 mg Levetiracetam (Keppra) 1,500 mg PO Q12HR [facility] Stop: 08/30/17 08:59 Last Admin: 07/09/17 09:42 Dose: 1,500 mg Lorazepam (Ativan) 0.5 mg PO Q4HR PRN; Protocol PRN Reason: Agitation Stop: 07/31/17 00:01 Last Admin: 07/03/17 01:17 Dose: 0.5 mg Lorazepam (Ativan) 1 mg PO TID [facility] Stop: 08/30/17 15:47 Last Admin: 07/09/17 09:43 Dose: 1 mg Phenytoin (Dilantin) 100 mg PO TID [facility] Stop: 08/30/17 08:59 Last Admin: 07/09/17 09:42 Dose: 100 mg Quetiapine Fumarate (Seroquel) 25 mg PO BID [facility] PRN Reason: Protocol Stop: 08/30/17 08:59 Last Admin: 07/09/17 09:42 Dose: 25 mg Temazepam (Restoril) 15 mg PO HS PRN; Protocol PRN Reason: Insomnia Stop: 08/29/17 22:36 Last Admin: 07/08/17 21:16 Dose: 15 mg Tramadol HCl (Ultram) 50 mg PO Q8HR PRN PRN Reason: MOD/SEVERE PAIN Stop: 08/29/17 22:36 General: alert HEENT: NC/AT, PERRLA Neck: Supple Abdomen: soft, non-tender Internal Medicine Assmt/Plan - Assessment Assessment: seizure disorder psychosis hx mr oa - Plan Plan: continue current orders Nutritional Asmnt/Malnutr-PDOC - Dietary Evaluation Malnutrition Findings (Please click <Entered> for more info): Nutritional Asmnt/Malnutrition Start: 07/07/17 17: 29 Text: Status: Complete Freq: Document 07/07/17 17:30 LCHENG (Rec: 07/07/17 17:40 LCHENG [email or web address]) Nutritional Asmnt/Malnutrition Patient General Information Nutritional Screening Low Risk Diagnosis psychosis Pertinent Medical Hx/Surgical Hx seizure, psychosis, mental retardation, OA Subjective Information Pt seen eating in alison-chair in hallway. Pt stated he is on diet. RN reported pt usually eat 100% of breakfast but refuse lunch and dinner. Pt now was eating a small sandwich, saying he want to go home. Current Diet Order/ Nutrition Support regular Pertinent Medications seroquel Pertinent Labs no nutrition related labs Nutritional Hx/Data Height 5 ft 5 in Height (Calculated Centimeters) 165.1 Current Weight (lbs) 192 lb Weight (Calculated Kilograms) 87.1 Weight (Calculated Grams) 99624.7 [place] Body Weight 136 Body Mass Index (BMI) 31.9 Weight Status Obese GI Symptoms GI Symptoms None Last BM 3/10 Difficult in: None Skin Integrity/Comment: intact Estimated Nutritional Goals BEE in Kcals: Adj wt of IBW Calories/Kcals/Kg 25-30 Kcals Calculated 2014-5695 Protein: Adj wt of IBW Protein g/k Protein Calculated 68 Fluid: ml 1700-2040ml (1ml/ckal) Nutritional Problem 1. Problem Problem inadequate food intake Etiology possible cognition Signs/Symptoms: pt refusing lunch and dinner Malnutrition Alert Protein-Calorie Malnutrition N/A Is there a minimum of two criteria No selected? Query Text:Check all the applicable criteria. A minimum of two criteria are recommended for diagnosis of either severe or non-severe malnutrition. Intervention/Recommendation Comments 1. Continue with current diet as ordered. Encouraged PO intake. If pt does not want big meal, try to give pt small salad, soup, sandwich. RN notified. 2. Monitor PO intake, wt, labs and skin integrity 3. F/U as moderate risk in 3-5 days, 07/10-07/12 Expected Outcomes/Goals Expected Outcomes/Goals 1. PO intake to meet at least 75% of nutritional needs. 2. Wt stability, skin to remain intact, labs to approach WNL.
--- NOTE | 2017-07-10 11:03 | Progress Notes ---
DATE: SUBJECTIVE: Chart reviewed and the patient interviewed. Also discussed the patient's condition with the staff and reviewed records and labs. The patient is still confused. Also is forgetful and is still suspicious and paranoid. The patient also is guarded and does not answer much of the questions. On the other hand, he is compliant with taking his medications with no side effects of medications. ASSESSMENT: The patient is still agitated and psychotic. TREATMENT PLAN: Continue to monitor behavior and condition closely. Also, continue adjusting psychotropic medications and follow up with discharge plans. JOB# [id number]
--- NOTE | 2017-07-11 11:04 | Progress Notes ---
DATE: 07/11/2017 SUBJECTIVE: The patient was seen in the hallway sitting in the [facility]. Per report, the patient had a near fall incident yesterday. No focal deficits or any obvious symptoms noted. Otherwise, the patient appears to be in no acute distress, appears to be irritable at times. OBJECTIVE: VITAL SIGNS: Temperature 98.4, heart rate 93, blood pressure 105/71, respirations 19, and 98% on room air. HEENT: Head is atraumatic and normocephalic. Eyes: Bilateral conjunctivae are clear. Bilateral pupils are equally round and reactive. NECK: Supple. No JVD. CARDIOVASCULAR: S1 and S2 without murmur. PULMONARY: Clear to auscultation. GASTROINTESTINAL: Soft and nontender without guarding. Positive bowel sounds. MUSCULOSKELETAL: No clubbing. No cyanosis noted. ASSESSMENT: 1. Psychosis. 2. Seizure disorder. 3. Osteoarthritis. 4. Unsteady gait. PLAN: We will keep the patient inpatient in a Mental Health Unit. We will follow up with a psychiatrist to monitor the patient's condition and behavior. Put the patient in seizure precaution and fall precaution. Treatment plans were discussed with the patient's nurse. Treatment plans were discussed with Dr. Patel. JOB# [id number]
--- NOTE | 2017-07-11 22:35 | Progress Notes ---
DATE: 07/11/2017 Case was discussed with staff of the patient, reviewed records. The patient is balancing on his feet, apparently he fell down. The staff is watching him, the patient is confused, forgetful, and unable to participate in meaningful conversation. He is also suspicious, paranoid and guarded, unable to give me much information about his condition. Continues to be psychotic. He is being monitored closely because of the fall and because of his behavior. He has been compliant with the medication with no side effects. He is on Tegretol 400 mg twice a day and Keppra for seizure disorder 100 mg every 12 hours, Dilantin 100 mg 3 times a day, Seroquel 25 mg twice a day with no side effects, no sedation, no nausea. Cogentin was added 0.5 mg twice a day and will continue what patient is already on fall precautions and seizure precautions and will continue outpatient group therapy, milieu therapy, adjust medication as needed. JOB# [id number]
--- NOTE | 2017-07-12 09:06 | General Progress Note ---
Subjective - Review of Systems Events since last encounter: patient is confused and forgetfull Objective - Results Recent Labs: Laboratory Last Values Phenytoin < 2.5 ug/ml (10.0-20.0) L 07/02/17 15:50 Carbamazepine 8.0 ug/ml (4.0-12.0) 07/02/17 15:50 - Physical Exam Vitals and I&O: Vital Signs Temp 97.7 F 07/12/17 07:11 Pulse 105 07/12/17 07:11 Resp 18 07/12/17 07:11 BP 112/75 07/12/17 07:11 Pulse Ox 96 07/12/17 07:11 Intake & Output 07/11/17 07/12/17 07/12/17 18:59 06:59 18:59 Intake Total 960 Balance 960 Intake: Oral 960 Other: # Voids 2 # Bowel Movements 1 Active Medications: Current Medications Acetaminophen (Tylenol) 650 mg PO Q4HR PRN PRN Reason: MILD PAIN/TEMP>101.0 Stop: 08/29/17 22:36 Benztropine Mesylate (Cogentin) 0.5 mg PO BID [facility] Stop: 09/07/17 08:59 Last Admin: 07/12/17 08:31 Dose: 0.5 mg Carbamazepine (Tegretol) 400 mg PO BID [facility] Stop: 08/30/17 09:59 Last Admin: 07/12/17 08:30 Dose: 400 mg Haloperidol (Haldol) 5 mg PO Q8HR PRN; Protocol PRN Reason: Agitation Stop: 08/30/17 04:59 Lacosamide (Vimpat) 150 mg PO BID [facility] Stop: 08/30/17 09:59 Last Admin: 07/12/17 08:31 Dose: 150 mg Levetiracetam (Keppra) 1,500 mg PO Q12HR [facility] Stop: 08/30/17 08:59 Last Admin: 07/12/17 08:30 Dose: 1,500 mg Lorazepam (Ativan) 0.5 mg PO Q4HR PRN; Protocol PRN Reason: Agitation Stop: 07/31/17 00:01 Last Admin: 07/03/17 01:17 Dose: 0.5 mg Lorazepam (Ativan) 1 mg PO TID [facility] Stop: 08/30/17 15:47 Last Admin: 07/12/17 08:30 Dose: 1 mg Phenytoin (Dilantin) 100 mg PO TID [facility] Stop: 08/30/17 08:59 Last Admin: 07/12/17 08:30 Dose: 100 mg Quetiapine Fumarate (Seroquel) 25 mg PO BID [facility] PRN Reason: Protocol Stop: 08/30/17 08:59 Last Admin: 07/12/17 08:31 Dose: 25 mg Temazepam (Restoril) 15 mg PO HS PRN; Protocol PRN Reason: Insomnia Stop: 08/29/17 22:36 Last Admin: 07/10/17 21:16 Dose: 15 mg Tramadol HCl (Ultram) 50 mg PO Q8HR PRN PRN Reason: MOD/SEVERE PAIN Stop: 08/29/17 22:36 Nutritional Asmnt/Malnutr-PDOC - Dietary Evaluation Malnutrition Findings (Please click <Entered> for more info): Nutritional Asmnt/Malnutrition Start: 07/07/17 17: 29 Text: Status: Complete Freq: Document 07/07/17 17:30 MICHELE (Rec: 07/07/17 17:40 HEN [email or web address]) Nutritional Asmnt/Malnutrition Patient General Information Nutritional Screening Low Risk Diagnosis psychosis Pertinent Medical Hx/Surgical Hx seizure, psychosis, mental retardation, OA Subjective Information Pt seen eating in alison-chair in hallway. Pt stated he is on diet. RN reported pt usually eat 100% of breakfast but refuse lunch and dinner. Pt now was eating a small sandwich, saying he want to go home. Current Diet Order/ Nutrition Support regular Pertinent Medications seroquel Pertinent Labs no nutrition related labs Nutritional Hx/Data Height 1.65 m Height (Calculated Centimeters) 165.1 Current Weight (lbs) 87.09 kg Weight (Calculated Kilograms) 87.1 Weight (Calculated Grams) 96615.7 [place] Body Weight 136 Body Mass Index (BMI) 31.9 Weight Status Obese GI Symptoms GI Symptoms None Last BM 3/10 Difficult in: None Skin Integrity/Comment: intact Estimated Nutritional Goals BEE in Kcals: Adj wt of IBW Calories/Kcals/Kg 25-30 Kcals Calculated 9210-5672 Protein: Adj wt of IBW Protein g/k Protein Calculated 68 Fluid: ml 1700-2040ml (1ml/ckal) Nutritional Problem 1. Problem Problem inadequate food intake Etiology possible cognition Signs/Symptoms: pt refusing lunch and dinner Malnutrition Alert Protein-Calorie Malnutrition N/A Is there a minimum of two criteria No selected? Query Text:Check all the applicable criteria. A minimum of two criteria are recommended for diagnosis of either severe or non-severe malnutrition. Intervention/Recommendation Comments 1. Continue with current diet as ordered. Encouraged PO intake. If pt does not want big meal, try to give pt small salad, soup, sandwich. RN notified. 2. Monitor PO intake, wt, labs and skin integrity 3. F/U as moderate risk in 3-5 days, 07/10-07/12 Expected Outcomes/Goals Expected Outcomes/Goals 1. PO intake to meet at least 75% of nutritional needs. 2. Wt stability, skin to remain intact, labs to approach WNL.
--- NOTE | 2017-07-13 03:24 | Progress Notes ---
DATE: 07/12/2017 Case was discussed with staff of the patient, reviewed records. The patient continues to be unpredictable, impulsive. He apparently has unstable gait. He is already on fall risk and fall precautions. He did fall yesterday. He has been compliant with the medication with no side effects, no sedation. We will start put him on a [place] chair and that they say he keeps coming down from it. We will continue to work with the patient in group therapy, milieu therapy, and adjust medications. JOB# [id number]
--- NOTE | 2017-07-13 11:30 | General Progress Note ---
Subjective - Review of Systems Events since last encounter: patient continues to be unpredictable s/p fall Objective - Results Recent Labs: Laboratory Last Values Phenytoin < 2.5 ug/ml (10.0-20.0) L 07/02/17 15:50 Carbamazepine 8.0 ug/ml (4.0-12.0) 07/02/17 15:50 - Physical Exam Vitals and I&O: Vital Signs Temp 98.1 F 07/13/17 05:34 Pulse 69 07/13/17 05:34 Resp 18 07/13/17 05:34 BP 126/65 07/13/17 05:34 Pulse Ox 97 07/13/17 05:34 Active Medications: Current Medications Acetaminophen (Tylenol) 650 mg PO Q4HR PRN PRN Reason: MILD PAIN/TEMP>101.0 Stop: 08/29/17 22:36 Benztropine Mesylate (Cogentin) 0.5 mg PO BID [facility] Stop: 09/07/17 08:59 Last Admin: 07/13/17 08:10 Dose: 0.5 mg Carbamazepine (Tegretol) 400 mg PO BID [facility] Stop: 08/30/17 09:59 Last Admin: 07/13/17 08:09 Dose: 400 mg Haloperidol (Haldol) 5 mg PO Q8HR PRN; Protocol PRN Reason: Agitation Stop: 08/30/17 04:59 Lacosamide (Vimpat) 150 mg PO BID [facility] Stop: 08/30/17 09:59 Last Admin: 07/13/17 08:09 Dose: 150 mg Levetiracetam (Keppra) 1,500 mg PO Q12HR [facility] Stop: 08/30/17 08:59 Last Admin: 07/13/17 08:10 Dose: 1,500 mg Lorazepam (Ativan) 0.5 mg PO Q4HR PRN; Protocol PRN Reason: Agitation Stop: 07/31/17 00:01 Last Admin: 07/03/17 01:17 Dose: 0.5 mg Lorazepam (Ativan) 1 mg PO TID [facility] Stop: 08/30/17 15:47 Last Admin: 07/13/17 08:10 Dose: 1 mg Phenytoin (Dilantin) 100 mg PO TID [facility] Stop: 08/30/17 08:59 Last Admin: 07/13/17 08:09 Dose: 100 mg Quetiapine Fumarate (Seroquel) 25 mg PO BID [facility] PRN Reason: Protocol Stop: 08/30/17 08:59 Last Admin: 07/13/17 08:10 Dose: 25 mg Temazepam (Restoril) 15 mg PO HS PRN; Protocol PRN Reason: Insomnia Stop: 08/29/17 22:36 Last Admin: 07/10/17 21:16 Dose: 15 mg Tramadol HCl (Ultram) 50 mg PO Q8HR PRN PRN Reason: MOD/SEVERE PAIN Stop: 08/29/17 22:36 Nutritional Asmnt/Malnutr-PDOC - Dietary Evaluation Malnutrition Findings (Please click <Entered> for more info): Nutritional Asmnt/Malnutrition Start: 07/07/17 17: 29 Text: Status: Complete Freq: Document 07/07/17 17:30 LCMICHELEG (Rec: 07/07/17 17:40 LCHENG [email or web address]) Nutritional Asmnt/Malnutrition Patient General Information Nutritional Screening Low Risk Diagnosis psychosis Pertinent Medical Hx/Surgical Hx seizure, psychosis, mental retardation, OA Subjective Information Pt seen eating in alison-chair in hallway. Pt stated he is on diet. RN reported pt usually eat 100% of breakfast but refuse lunch and dinner. Pt now was eating a small sandwich, saying he want to go home. Current Diet Order/ Nutrition Support regular Pertinent Medications seroquel Pertinent Labs no nutrition related labs Nutritional Hx/Data Height 1.65 m Height (Calculated Centimeters) 165.1 Current Weight (lbs) 87.09 kg Weight (Calculated Kilograms) 87.1 Weight (Calculated Grams) 88342.7 [place] Body Weight 136 Body Mass Index (BMI) 31.9 Weight Status Obese GI Symptoms GI Symptoms None Last BM 3/10 Difficult in: None Skin Integrity/Comment: intact Estimated Nutritional Goals BEE in Kcals: Adj wt of IBW Calories/Kcals/Kg 25-30 Kcals Calculated 7207-9496 Protein: Adj wt of IBW Protein g/k Protein Calculated 68 Fluid: ml 1700-2040ml (1ml/ckal) Nutritional Problem 1. Problem Problem inadequate food intake Etiology possible cognition Signs/Symptoms: pt refusing lunch and dinner Malnutrition Alert Protein-Calorie Malnutrition N/A Is there a minimum of two criteria No selected? Query Text:Check all the applicable criteria. A minimum of two criteria are recommended for diagnosis of either severe or non-severe malnutrition. Intervention/Recommendation Comments 1. Continue with current diet as ordered. Encouraged PO intake. If pt does not want big meal, try to give pt small salad, soup, sandwich. RN notified. 2. Monitor PO intake, wt, labs and skin integrity 3. F/U as moderate risk in 3-5 days, 07/10-07/12 Expected Outcomes/Goals Expected Outcomes/Goals 1. PO intake to meet at least 75% of nutritional needs. 2. Wt stability, skin to remain intact, labs to approach WNL.
--- NOTE | 2017-07-13 18:01 | Discharge Summary ---
DATE OF DISCHARGE: 07/13/2017 PATIENT'S AGE: 46 SEX: Male. FINAL DIAGNOSES/PRIMARY DIAGNOSES: Chronic paranoid schizophrenia with acute exacerbation. REASON FOR HOSPITALIZATION: The patient was admitted to the hospital from [facility] because of increased agitation, irritability, and aggressive behavior. HOSPITAL COURSE: The patient continued to be agitated and restless. The patient also was suspicious and paranoid. The patient also was questionably compliant with taking medications in the facility, but he was compliant with taking his medications in the hospital. Gradually, the patient's affect was brighter. The patient was less agitated and less irritable. The patient also was easier to redirect. The patient was discharged back to [facility]. Physical examination of the patient shows, as mentioned, under [place] III of final diagnoses. AFTER DISCHARGE PLANS: The patient is discharged from the hospital back to [place] with the plan to follow him up there. EXPECTED OUTCOME AFTER DISCHARGE: Fair if the patient continues to take his psychotropic medications and follow up with discharge plans. [facility]# [id number]
--- NOTE | 2017-07-14 22:32 | Progress Notes ---
DATE: 07/05/2017 SUBJECTIVE: Chart reviewed and the patient interviewed. Also discussed the patient's condition with the staff and reviewed records and labs. The patient is still anxious and has episodes of irritability and agitation, but seems to be slightly less than before. Also, he is still cooperative with his treatment, and he is compliant with taking his medications, also slightly easier to redirections, although is still having episodes of irritability and anger. ASSESSMENT: The patient seems to be slightly less agitated and less psychotic. TREATMENT PLAN: Continue monitoring his behavior and his condition closely and we will continue to follow up. JOB# [id number]
== END 2017-07-13 19:55 | disposition home or self-care (01) | DRG 885 ==
LOC: GERO2 21:00
PROVIDERS: ADMIT Psychiatry & Neurology Psychiatry; ATTEND Psychiatry & Neurology Psychiatry
DX: F20.0 Paranoid schizophrenia (principal); F79 Unspecified intellectual disabilities; F29 Unspecified psychosis not due to a substance or known physiological condition; G40.909 Epilepsy, unspecified, not intractable, without status epilepticus; M19.90 Unspecified osteoarthritis, unspecified site; I34.0 Nonrheumatic mitral (valve) insufficiency; R26.81 Unsteadiness on feet
CPT/HCPCS: 36415-UA; 80156-TC; 80185-TC; G0410; Z7610